=== PATIENT | female | born 1955 | race Caucasian/White ===

== ENCOUNTER 2024-11-24 12:07 | Emergency (ER) | payer MEDICARE, OTHER, SELFPAY ==
--- NOTE | ~2024-11-24 | CT_ITS ---
EXAMINATION: CT HEAD WITHOUT IV CONTRAST HISTORY: ams. TECHNIQUE: Unenhanced helical CT of the head was performed per standard departmental protocol. Coronal and sagittal reformats of the head were also evaluated. One or more of the following techniques was used for dose reduction: Automated exposure control, adjustment of the mA and/or kV according to patient size, use of iterative reconstruction technique. DLP: 793 mGy-cm COMPARISON: There are no prior studies available for comparison. FINDINGS: BRAIN: There is mild prominence of the ventricular system and cortical sulci, consistent with atrophy. Scattered periventricular and subcortical white matter hypodensities are noted which are nonspecific, but often seen in the setting of small vessel ischemic disease. There is no mass effect or midline shift. No intra- or extra-axial fluid collections are identified. SINUSES: The visualized paranasal sinuses are clear. The mastoid air cells and middle ear cavities are well pneumatized. ORBITS: The visualized orbits are unremarkable. BONES/SOFT TISSUES: The extracranial soft tissues are unremarkable. The calvarium is intact. No suspicious lytic or sclerotic lesions. CT/CT head/brain wo IV con IMPRESSION: No acute intracranial abnormality. Electronically signed by: Yayo Carlson MD 11/25/2024 07:56 AM EDT
[2024-11-24 12:28] VITALS: BP 146/66; PULSE 110; RESP 16; TEMP 36.5; O2SAT 97; BMI 29.5
--- NOTE | 2024-11-24 12:29 | ED.GENADULT ---
HPI - General Adult General Chief complaint: General Medical Stated complaint: high sugar and high bp- memory issues Time Seen by Provider: 11/24/24 16:02 Related Data Previous Rx's ?Medication ?Instructions ?Recorded metformin 500 mg tablet 1,500 mg (3 x 500 mg) PO BID 30 11/26/24 days #180 tabs metoprolol succinate 100 mg 100 mg PO DAILY #30 tabs 11/26/24 tablet,extended release 24 hr oxycodone 5 mg tablet 5 mg PO Q8H PRN pain (scale score 11/26/24 7-10) #5 tabs risperidone 1 mg tablet (Risperdal) 1 mg PO BID #20 tabs 11/26/24 Allergies Allergy/AdvReac Type Severity Reaction Status Date / Time No Known Allergies Allergy Verified 11/24/24 12:30 [facility] Past Medical History Medical History (Updated 11/27/24 @ 12:05 by Emani Ramirez [facility]) Diabetes mellitus Memory changes Physical Exam ED Vital Signs: Vital Signs - 24 hr 11/26/24 14:26 11/26/24 14:29 Temperature 98.1 F 98.1 F Pulse Rate 90 90 Respiratory Rate 18 18 Blood Pressure 143/62 H 143/62 H Pulse Oximetry 98 98 Oxygen Delivery Method Room Air Room Air BMI result Body Mass Index 29.5 Course Course Course Narrative: Rapid medical examination performed in triage by Katia Gamez PA-C. Patient is a 69 year old assigned female at presenting to the emergency department with elevated blood pressure and sugars? Detailed physical exam and review of systems are deferred to the real estate loan processor. EKG and labs ordered. Patient placed back in the waiting room pending room availability and results. Reevaluation(s) Reevaluation #1: Time: 06:05 Date: 11/25/24 Provider: Ofe Pritchard, DO Patient in physician observation for psychiatric evaluation.? No acute events reported overnight. No current complaints. VS stable.? Patient is pending psych consult, head CT read pending will call rads. Will continue to monitor. Reevaluation #2: Just receiving a call from [facility], the patient is enquiring about medication for anxiety and a headache. She received Ativan and Tylenol yesterday, repeating also adding ibuprofen..... She is also hyperglycemic, she has scheduled metformin that she did not receive yet, she does not take insulin, nursing is going to administer now Medications Administered Discontinued Medications Generic Name Dose Route Start Last Admin Trade Name Shelia PRMargaux Reason Stop Dose Admin Acetaminophen 975 mg 11/24/24 20:50 11/24/24 20:53 Acetaminophen 325 Mg Tablet PO 11/24/24 20:51 975 mg ONCE ONE Administration Acetaminophen 975 mg 11/25/24 10:31 11/25/24 12:19 Acetaminophen 325 Mg Tablet PO 11/25/24 10:32 Not Given ONCE ONE Acetaminophen 975 mg 11/25/24 12:39 11/25/24 12:42 Acetaminophen 325 Mg Tablet PO 11/25/24 12:40 325 mg ONCE ONE Administration Acetaminophen 975 mg 11/25/24 21:01 11/25/24 21:54 Acetaminophen 325 Mg Tablet PO 11/25/24 21:02 975 mg ONCE ONE Administration Diphenhydramine HCl 25 mg 11/24/24 19:52 11/24/24 20:49 Diphenhydramine Hcl 50 Mg/Ml Vial IM 11/24/24 19:53 Not Given ONCE ONE Haloperidol Lactate 5 mg 11/24/24 19:52 11/24/24 20:49 Haloperidol Lactate 5 Mg/Ml Vial IM 11/24/24 19:53 Not Given ONCE ONE Sodium Chloride 1,000 mls @ 999 mls/hr 11/24/24 16:30 11/24/24 17:50 Ns IV 11/24/24 17:30 Infused .Q1H1M COMFORT Infusion Sodium Chloride 1,000 mls @ 999 mls/hr 11/24/24 21:45 11/25/24 00:29 Ns IV 11/24/24 22:45 Infused .Q1H1M COMFORT Infusion Ibuprofen 600 mg 11/25/24 21:01 11/25/24 23:52 Ibuprofen 600 Mg Tablet PO 11/25/24 21:02 Not Given ONCE ONE Insulin Human Regular 5 unit 11/24/24 21:37 11/24/24 23:09 Insulin Regular, Human 100 Unit/Ml 10 Ml Vial SUBCUT 11/24/24 21:38 5 unit ONCE ONE Administration Lidocaine 1 patch 11/24/24 20:29 11/24/24 23:08 Lidocaine 4 % Patch Adh..Patch TRANSDERMA 11/24/24 20:30 1 patch ONCE ONE Administration Protocol Lorazepam 1 mg 11/24/24 20:03 11/24/24 20:09 Lorazepam 1 Mg Tablet PO 11/24/24 20:04 1 mg ONCE ONE Administration Lorazepam 1 mg 11/25/24 21:01 11/25/24 21:54 Lorazepam 1 Mg Tablet PO 11/25/24 21:02 1 mg ONCE ONE Administration Metformin HCl 1,000 mg 11/25/24 10:45 11/25/24 12:38 Metformin Hcl 1,000 Mg Tablet PO 1,000 mg BID COMFORT Administration Metformin HCl 1,000 mg 11/25/24 21:00 11/26/24 09:21 Metformin Hcl 1,000 Mg Tablet PO 1,000 mg BID COMFORT Administration Metoprolol Succinate 100 mg 11/25/24 10:45 11/26/24 09:22 Metoprolol Succinate Er 100 Mg Tab.Er.24h PO 100 mg DAILY COMFORT Administration Protocol Oxycodone HCl 5 mg 11/25/24 11:19 11/25/24 12:37 Oxycodone Hcl Immed Release 5 Mg Tablet PO 11/25/24 11:20 5 mg ONCE ONE Administration Oxycodone HCl 5 mg 11/26/24 08:38 11/26/24 09:21 Oxycodone Hcl Immed Release 5 Mg Tablet PO 11/26/24 08:39 5 mg ONCE ONE Administration Quetiapine Fumarate 25 mg 11/24/24 19:48 11/24/24 23:09 Quetiapine Fumarate 25 Mg Tablet PO 11/24/24 19:49 25 mg ONCE ONE Administration Risperidone 1 mg 11/25/24 14:10 11/26/24 09:22 Risperidone 1 Mg Tablet PO 1 mg BID COMFORT Administration Medical Decision Making Lab Data 11/24/24 12:41 11/24/24 12:41 Labs: Lab Results 11/24/24 11/24/24 11/24/24 Range/Units 12:41 15:53 16:48 WBC 7.6 (4.8-10.8) X10*3/uL RBC 4.06 L (4.20-5.50) X10*6/uL Hgb 13.5 (12.0-16.0) g/dl Hct 37.3 (37.0-47.0) % MCV 91.9 (80.0-98.0) fL MCH 33.3 H (27.0-33.0) pg MCHC 36.2 H (31.0-35.0) g/dl RDW 11.8 (11.0-16.0) % Plt Count 219 (160-400) X10*3/uL MPV 8.7 L (9.4-12.3) fL Immature Gran % (Auto) 0.5 H (0.0-0.4) % Neut % (Auto) 64.0 (45-73) % Lymph % (Auto) 28.9 (20-40) % Lake % (Auto) 5.9 (2-11) % Eos % (Auto) 0.4 (0-4) % Baso % (Auto) 0.3 (0-2) % Lymph # (Auto) 2.2 (1.2-4.9) X10*3/uL Lake # (Auto) 0.5 (0.1-1.2) X10*3/uL Eos # (Auto) 0.0 (0.0-0.4) X10*3/uL Baso # (Auto) 0.0 (0.0-0.2) X10*3/uL Abs Immat Gran (auto) 0.04 H (0.00-0.03) X10*3/uL Absolute Neuts (auto) 4.9 (2.0-8.3) x10*3/uL Absolute Nucleated RBC 0.000 (0.0-0.012) X10*3/uL Nucleated RBC % (auto) 0.0 (0.0-0.2) /100WBC Sodium 138 (135-145) mmol/L Potassium 4.2 (3.3-5.1) mmol/L Chloride 104 (96-108) mmol/L Carbon Dioxide 24 (22-29) mmol/L Anion Gap 14 (12-20) BUN 12 (9-16) mg/dL Creatinine 0.64 (0.5-1.4) mg/dL Estim Creat Clear Calc 96.3 Estimated GFR > 60 POC Glucose 286 H (60-115) mg/dL Random Glucose 407 H* (60-115) mg/dL Lactic Acid 1.2 (0.5-2.0) mmol/L Calcium 10.1 (8.4-10.2) mg/dL Magnesium 1.6 (1.6-2.6) mg/dL Total Bilirubin 0.4 (0.0-1.0) mg/dL AST 16 (5-31) U/L ALT 13 (0-31) U/L Alkaline Phosphatase 56 (39-117) U/L Total Protein 7.3 (6.5-8.0) g/dL Albumin 4.5 (3.5-5.0) g/dL Vitamin B12 933 H (200-900) pg/mL TSH 0.45 (0.32-4.0) uIU/mL Urine Color Yellow Urine Appearance Clear Urine pH 6.0 (5.0-9.0) Ur Specific [place] >= 1.030 H (1.005-1.025) Urine Protein 30 (1+) H (Neg-Trace) mg/dL Urine Glucose (UA) >=1000 H (Negative) mg/dL Urine Ketones 80 (Negative) mg/dL Urine Blood Negative (Negative) Urine Nitrite Negative (Negative) Ur Leukocyte Esterase Negative (Negative) Urine RBC 0-2 (0-2) /HPF Urine WBC 0-5 (0-5) /HPF Ur Squamous Epith Cells 0-2 (0-2) /HPF Urine Bacteria None Seen (None Seen) Hyaline Casts 0-2 (0-2) /LPF COVID-19 ([facility]) Negative (Negative) COVID-19 Clin Com See Note 11/24/24 11/24/24 11/25/24 Range/Units 17:43 20:53 07:02 WBC (4.8-10.8) X10*3/uL RBC (4.20-5.50) X10*6/uL Hgb (12.0-16.0) g/dl Hct (37.0-47.0) % MCV (80.0-98.0) fL MCH (27.0-33.0) pg MCHC (31.0-35.0) g/dl RDW (11.0-16.0) % Plt Count (160-400) X10*3/uL MPV (9.4-12.3) fL Immature Gran % (Auto) (0.0-0.4) % Neut % (Auto) (45-73) % Lymph % (Auto) (20-40) % Lake % (Auto) (2-11) % Eos % (Auto) (0-4) % Baso % (Auto) (0-2) % Lymph # (Auto) (1.2-4.9) X10*3/uL Lake # (Auto) (0.1-1.2) X10*3/uL Eos # (Auto) (0.0-0.4) X10*3/uL Baso # (Auto) (0.0-0.2) X10*3/uL Abs Immat Gran (auto) (0.00-0.03) X10*3/uL Absolute Neuts (auto) (2.0-8.3) x10*3/uL Absolute Nucleated RBC (0.0-0.012) X10*3/uL Nucleated RBC % (auto) (0.0-0.2) /100WBC Sodium (135-145) mmol/L Potassium (3.3-5.1) mmol/L Chloride (96-108) mmol/L Carbon Dioxide (22-29) mmol/L Anion Gap (12-20) BUN (9-16) mg/dL Creatinine (0.5-1.4) mg/dL Estim Creat Clear Calc Estimated GFR POC Glucose 245 H 353 H* 217 H (60-115) mg/dL Random Glucose (60-115) mg/dL Lactic Acid (0.5-2.0) mmol/L Calcium (8.4-10.2) mg/dL Magnesium (1.6-2.6) mg/dL Total Bilirubin (0.0-1.0) mg/dL AST (5-31) U/L ALT (0-31) U/L Alkaline Phosphatase (39-117) U/L Total Protein (6.5-8.0) g/dL Albumin (3.5-5.0) g/dL Vitamin B12 (200-900) pg/mL TSH (0.32-4.0) uIU/mL Urine Color Urine Appearance Urine pH (5.0-9.0) Ur Specific [place] (1.005-1.025) Urine Protein (Neg-Trace) mg/dL Urine Glucose (UA) (Negative) mg/dL Urine Ketones (Negative) mg/dL Urine Blood (Negative) Urine Nitrite (Negative) Ur Leukocyte Esterase (Negative) Urine RBC (0-2) /HPF Urine WBC (0-5) /HPF Ur Squamous Epith Cells (0-2) /HPF Urine Bacteria (None Seen) Hyaline Casts (0-2) /LPF COVID-19 ([facility]) (Negative) COVID-19 Clin Com 11/25/24 11/25/24 11/26/24 Range/Units 16:35 21:11 08:23 WBC (4.8-10.8) X10*3/uL RBC (4.20-5.50) X10*6/uL Hgb (12.0-16.0) g/dl Hct (37.0-47.0) % MCV (80.0-98.0) fL MCH (27.0-33.0) pg MCHC (31.0-35.0) g/dl RDW (11.0-16.0) % Plt Count (160-400) X10*3/uL MPV (9.4-12.3) fL Immature Gran % (Auto) (0.0-0.4) % Neut % (Auto) (45-73) % Lymph % (Auto) (20-40) % Lake % (Auto) (2-11) % Eos % (Auto) (0-4) % Baso % (Auto) (0-2) % Lymph # (Auto) (1.2-4.9) X10*3/uL [place] # (Auto) (0.1-1.2) X10*3/uL Eos # (Auto) (0.0-0.4) X10*3/uL Baso # (Auto) (0.0-0.2) X10*3/uL Abs Immat Gran (auto) (0.00-0.03) X10*3/uL Absolute Neuts (auto) (2.0-8.3) x10*3/uL Absolute Nucleated RBC (0.0-0.012) X10*3/uL Nucleated RBC % (auto) (0.0-0.2) /100WBC Sodium (135-145) mmol/L Potassium (3.3-5.1) mmol/L Chloride (96-108) mmol/L Carbon Dioxide (22-29) mmol/L Anion Gap (12-20) BUN (9-16) mg/dL Creatinine (0.5-1.4) mg/dL Estim Creat Clear Calc Estimated GFR POC Glucose 275 H 369 H* 273 H (60-115) mg/dL Random Glucose (60-115) mg/dL Lactic Acid (0.5-2.0) mmol/L Calcium (8.4-10.2) mg/dL Magnesium (1.6-2.6) mg/dL Total Bilirubin (0.0-1.0) mg/dL AST (5-31) U/L ALT (0-31) U/L Alkaline Phosphatase (39-117) U/L Total Protein (6.5-8.0) g/dL Albumin (3.5-5.0) g/dL Vitamin B12 (200-900) pg/mL TSH (0.32-4.0) uIU/mL Urine Color Urine Appearance Urine pH (5.0-9.0) Ur Specific [place] (1.005-1.025) Urine Protein (Neg-Trace) mg/dL Urine Glucose (UA) (Negative) mg/dL Urine Ketones (Negative) mg/dL Urine Blood (Negative) Urine Nitrite (Negative) Ur Leukocyte Esterase (Negative) Urine RBC (0-2) /HPF Urine WBC (0-5) /HPF Ur Squamous Epith Cells (0-2) /HPF Urine Bacteria (None Seen) Hyaline Casts (0-2) /LPF COVID-19 ([facility]) (Negative) COVID-19 Clin Com 11/26/24 Range/Units 12:20 WBC (4.8-10.8) X10*3/uL RBC (4.20-5.50) X10*6/uL Hgb (12.0-16.0) g/dl Hct (37.0-47.0) % MCV (80.0-98.0) fL MCH (27.0-33.0) pg MCHC (31.0-35.0) g/dl RDW (11.0-16.0) % Plt Count (160-400) X10*3/uL MPV (9.4-12.3) fL Immature Gran % (Auto) (0.0-0.4) % Neut % (Auto) (45-73) % Lymph % (Auto) (20-40) % Lake % (Auto) (2-11) % Eos % (Auto) (0-4) % Baso % (Auto) (0-2) % Lymph # (Auto) (1.2-4.9) X10*3/uL [place] # (Auto) (0.1-1.2) X10*3/uL Eos # (Auto) (0.0-0.4) X10*3/uL Baso # (Auto) (0.0-0.2) X10*3/uL Abs Immat Gran (auto) (0.00-0.03) X10*3/uL Absolute Neuts (auto) (2.0-8.3) x10*3/uL Absolute Nucleated RBC (0.0-0.012) X10*3/uL Nucleated RBC % (auto) (0.0-0.2) /100WBC Sodium (135-145) mmol/L Potassium (3.3-5.1) mmol/L Chloride (96-108) mmol/L Carbon Dioxide (22-29) mmol/L Anion Gap (12-20) BUN (9-16) mg/dL Creatinine (0.5-1.4) mg/dL Estim Creat Clear Calc Estimated GFR POC Glucose 325 H (60-115) mg/dL Random Glucose (60-115) mg/dL Lactic Acid (0.5-2.0) mmol/L Calcium (8.4-10.2) mg/dL Magnesium (1.6-2.6) mg/dL Total Bilirubin (0.0-1.0) mg/dL AST (5-31) U/L ALT (0-31) U/L Alkaline Phosphatase (39-117) U/L Total Protein (6.5-8.0) g/dL Albumin (3.5-5.0) g/dL Vitamin B12 (200-900) pg/mL TSH (0.32-4.0) uIU/mL Urine Color Urine Appearance Urine pH (5.0-9.0) Ur Specific [place] (1.005-1.025) Urine Protein (Neg-Trace) mg/dL Urine Glucose (UA) (Negative) mg/dL Urine Ketones (Negative) mg/dL Urine Blood (Negative) Urine Nitrite (Negative) Ur Leukocyte Esterase (Negative) Urine RBC (0-2) /HPF Urine WBC (0-5) /HPF Ur Squamous Epith Cells (0-2) /HPF Urine Bacteria (None Seen) Hyaline Casts (0-2) /LPF COVID-19 ([facility]) (Negative) COVID-19 Clin Com Discharge Plan Discharge Clinical Impression: Dementia, Left shoulder pain Patient Disposition: Home, Self-Care Instructions: Dementia (ED), Shoulder Pain (ED) Additional Instructions: You were evaluated by our psych team with recommendation to start risperidone. This has been sent to your pharmacy. Take this once daily. You need to follow up with your outpatient providers including PCP and neurologist. Take motrin/ tylenol for your shoulder pain. I am sending oxycodone, a controlled pain medication, to your pharmacy for you to take for breakthrough pain control. Please use this with caution as opioid pain medications have addictive properties. I have also provided you with Narcan as accidental overdoses on oxycodone can occur. Opioid pain medications can often cause constipation. I recommend taking this with an over the counter laxative and/or stool softener to help move your bowels. Case management has met with you and your niece. It has been decided that you will be discharged home with increased VNA services, set up by case management. Return with any new or worsening symptoms. In the case of an emergency call 911. Of note, your blood sugar was noted to be quite elevated even with your metformin. I am increasing her metformin dose. You need to follow up with your outpatient provider for further dosing and follow up. Prescriptions: New risperidone [Risperdal] 1 mg tablet 1 mg PO BID Qty: 20 0RF oxycodone 5 mg tablet 5 mg PO Q8H PRN (Reason: pain (scale score 7-10)) Qty: 5 0RF Rx Instructions: Partial Fill upon patient request. metformin 500 mg tablet 1,500 mg PO BID 30 Days Qty: 180 0RF metoprolol succinate 100 mg tablet extended release 24 hr 100 mg PO DAILY Qty: 30 0RF Referrals: [facility] [Provider Group] [facility] Neuro/[facility] [Provider Group] [facility] [Outside] Referral Note: Will call to arrange visits. [facility] [Outside] Referral Note: Will call to assess if patient qualifies for any services at home. Reena August NP [Primary Care Provider, Family Practice] Interventions: ED Discharge Assessment Last Done: 11/26/24 14:26 Discharge Date/Time: 11/26/24 15:05 Print Language: [place]
--- NOTE | 2024-11-24 12:30 | ECG_ITS ---
Test Reason : WEAKNESS Blood Pressure : */* mmHG Vent. Rate : 110 BPM Atrial Rate : 110 BPM P-R Int : 146 ms QRS Dur : 76 ms QT Int : 332 ms P-R-T Axes : 47 27 26 degrees QTcB Int : 449 ms Sinus tachycardia Otherwise normal ECG No previous ECGs available Referred By: Katia Gamez Electronically Signed By: RHINA SNYDER MD
[2024-11-24 12:46] LABS: MANUAL DIFF FLAG NO
[2024-11-24 12:53] LABS: Hematocrit 37.3 % (37.0-47.0); Hemoglobin 13.5 g/dl (12.0-16.0); Imm Gran Abs Auto 0.04 X10*3/uL (0.00-0.03); Imm Gran Pct Auto 0.5 % (0.0-0.4); Lymphocytes Absolute Auto 2.2 X10*3/uL (1.2-4.9); Mean Corpuscular HGB Conc 36.2 g/dl (31.0-35.0); Mean Corpuscular Hemoglobin 33.3 pg (27.0-33.0); Mean Corpuscular Volume 91.9 fL (80.0-98.0); NRBC Abs Auto 0.000 X10*3/uL (0.0-0.012); NRBC Pct Auto 0.0 /100WBC (0.0-0.2); Platelet Count 219 X10*3/uL (160-400); Red Blood Count 4.06 X10*6/uL (4.20-5.50); White Blood Count 7.6 X10*3/uL (4.8-10.8)
[2024-11-24 13:02] LABS: Alanine Aminotransferase 13 U/L (0-31); Albumin Level 4.5 g/dL (3.5-5.0); Alkaline Phosphatase 56 U/L (39-117); Anion Gap 14 (12-20); Aspartate Amino Transferase 16 U/L (5-31); Blood Urea Nitrogen 12 mg/dL (9-16); Calcium 10.1 mg/dL (8.4-10.2); Carbon Dioxide 24 mmol/L (22-29); Chloride 104 mmol/L (96-108); Creatinine Clr Calc Pharmacy 96.3; Estimated Glomerular Filt Rate > 60; Magnesium 1.6 mg/dL (1.6-2.6); Potassium 4.2 mmol/L (3.3-5.1); Sodium 138 mmol/L (135-145); Total Protein 7.3 g/dL (6.5-8.0)
[2024-11-24 15:57] LABS: Glucose, Whole Blood 286 mg/dL (60-115)
[2024-11-24 16:09] VITALS: BP 117/58; PULSE 92; RESP 17; TEMP 36.2; O2SAT 100
--- NOTE | 2024-11-24 16:20 | ED.GENADULT ---
HPI - General Adult General Chief complaint: General Medical Stated complaint: high sugar and high bp- memory issues Time Seen by Provider: 11/24/24 16:02 History of Present Illness HPI narrative: Patient is a 69-year-old female presents today with having sugar reading high. Patient undergone some neuropsych testing. Was found to be very forgetful. Mental status per knees has declined significantly in the last 6 months. Patient lives at home. There has been a lot of pills that are missing from her metformin she has a history diabetes. There is no fever no chills. There is no cough no congestion. There is no chest pain is no shortness of breath. Patient remembers that she went to school at [employer] she received an educational doctor it. 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 She is from [place]. Unable to recall the details of what is going on currently. Unable to recall if she took her medication. Unable to recall why her pills are missing. Patient denies any systemic complaints. Was initially noted to have a sugar over 400. Related Data Home Medications ?Medication ?Instructions ?Recorded ?Confirmed metformin 500 mg tablet 1,000 mg PO BID 11/24/24 11/24/24 metoprolol succinate 100 mg 100 mg PO DAILY 11/24/24 11/25/24 tablet,extended release 24 hr Previous Rx's ?Medication ?Instructions ?Recorded oxycodone 5 mg tablet 5 mg PO Q8H PRN pain (scale score 11/26/24 7-10) #5 tabs risperidone 1 mg tablet (Risperdal) 1 mg PO BID #20 tabs 11/26/24 Allergies Allergy/AdvReac Type Severity Reaction Status Date / Time No Known Allergies Allergy Verified 11/24/24 12:30 Review of Systems Review of Systems: Positive confusion Yes all other systems are reviewed and are negative [facility]LY [facility] Past Medical History Attestation statement: The following information was validated with the patient. Social History Social History Smoked in Last 30 Days: No Use of substances other than those prescribed or required for medical reasons: No Advance Directives: Yes Advance Directives Information Provided: Yes Advance Directives on File: No Do you have a plan to hurt others: No Plan Physical Exam ED Exam Exam: Appearance: Alert. Oriented X3. No acute distress. Eyes: Pupils equal, round and reactive to light. ENT: Pharynx normal. Neck: Normal inspection. Neck supple. No lymph nodes noted. No crepitus CVS: Normal heart rate and rhythm. Pulses normal. Normal S1 and S2 Respiratory: No respiratory distress. Breath sounds normal. No Wheezing. No rales Abdomen: Soft and nontender. No rigidity. No distention. good BS x4 Skin: Skin warm and dry. Normal skin color. Normal skin turgor. Extremities: No lower extremity edema. Neurovascular intact to all extremities. No Lacerations. No Rash Neuro: Oriented X 3. No motor deficit. No sensory deficit. Moving all extermities. No slurred speech Vital Signs: Vital Signs - 24 hr 11/25/24 12:38 11/25/24 14:10 11/25/24 16:00 Temperature 96.9 F 97.0 F Pulse Rate 73 88 80 Respiratory Rate 18 20 Blood Pressure 169/69 H 129/64 137/64 Pulse Oximetry 97 99 Oxygen Delivery Method Room Air Room Air 11/25/24 19:53 11/25/24 22:00 11/26/24 06:00 Temperature 97.4 F 97.0 F 97.2 F Pulse Rate 91 82 97 Respiratory Rate 20 18 18 Blood Pressure 151/76 H 125/66 158/78 H Pulse Oximetry 95 98 98 Oxygen Delivery Method Room Air Room Air Room Air 11/26/24 09:22 11/26/24 09:32 Temperature 98.5 F Pulse Rate 103 H 101 H Respiratory Rate 16 Blood Pressure 100/65 96/54 L Pulse Oximetry 100 Oxygen Delivery Method Room Air BMI result Body Mass Index 29.5 Course Course Course Narrative: Time: 18:03 Date: 11/25/24 Provider: CODEY Reynoso Patient in physician observation for case management needs. No acute events reported overnight.? No current issues or complaints. VS stable. Patient is pending CM eval. Will continue to monitor. Time: 08:41 Date: 11/26/24 Provider: CODEY Reynoso Patient in physician observation for case management needs. No acute events reported overnight.?patient endorsing acute on chronic atraumatic left shoulder pain. she has full ROM to L shoulder, no deformity or overlying skin changes. she follows with ortho for this outpatient. had a cortisone injection a few weeks ago without much improvement. tells me she missed her follow up appointment. she states she typically just takes tylenol for this at home [facility]. one time dose of oxy ordered for pain control. given continued pain w/ no change, I do not feel imaging is warranted at this time. I have ordered a one time dose of oxycodone. psych has evaluated patient - recommending risperidone 1 mg BID with continued outpatient treatment w/ neurology and PCP. see psych note for further info. she does not meet criteria for admission at this time. Per CM, plan is to discharge patient home w/ VNA services. Her niece Elizabeth will be transporting her home around 1400 today. Will continue to monitor. Time: 12:23 Date: 11/26/24 Provider: CODEY Reynoso Physician observation ended at 1223. see above note. Medications Administered Generic Name Dose Route Start Last Admin Trade Name Freq PRN Reason Stop Dose Admin Metformin HCl 1,000 mg 11/25/24 21:00 11/26/24 09:21 Metformin Hcl 1,000 Mg Tablet PO 1,000 mg BID COMFORT Administration Metoprolol Succinate 100 mg 11/25/24 10:45 11/26/24 09:22 Metoprolol Succinate Er 100 Mg Tab.Er.24h PO 100 mg DAILY COMFORT Administration Protocol Risperidone 1 mg 11/25/24 14:10 11/26/24 09:22 Risperidone 1 Mg Tablet PO 1 mg BID COMFORT Administration Discontinued Medications Generic Name Dose Route Start Last Admin Trade Name Freq PRN Reason Stop Dose Admin Acetaminophen 975 mg 11/24/24 20:50 11/24/24 20:53 Acetaminophen 325 Mg Tablet PO 11/24/24 20:51 975 mg ONCE ONE Administration Acetaminophen 975 mg 11/25/24 10:31 11/25/24 12:19 Acetaminophen 325 Mg Tablet PO 11/25/24 10:32 Not Given ONCE ONE Acetaminophen 975 mg 11/25/24 12:39 11/25/24 12:42 Acetaminophen 325 Mg Tablet PO 11/25/24 12:40 325 mg ONCE ONE Administration Acetaminophen 975 mg 11/25/24 21:01 11/25/24 21:54 Acetaminophen 325 Mg Tablet PO 11/25/24 21:02 975 mg ONCE ONE Administration Diphenhydramine HCl 25 mg 11/24/24 19:52 11/24/24 20:49 Diphenhydramine Hcl 50 Mg/Ml Vial IM 11/24/24 19:53 Not Given ONCE ONE Haloperidol Lactate 5 mg 11/24/24 19:52 11/24/24 20:49 Haloperidol Lactate 5 Mg/Ml Vial IM 11/24/24 19:53 Not Given ONCE ONE Sodium Chloride 1,000 mls @ 999 mls/hr 11/24/24 16:30 11/24/24 17:50 Ns IV 11/24/24 17:30 Infused .Q1H1M COMFORT Infusion Sodium Chloride 1,000 mls @ 999 mls/hr 11/24/24 21:45 11/25/24 00:29 Ns IV 11/24/24 22:45 Infused .Q1H1M COMFORT Infusion Ibuprofen 600 mg 11/25/24 21:01 11/25/24 23:52 Ibuprofen 600 Mg Tablet PO 11/25/24 21:02 Not Given ONCE ONE Insulin Human Regular 5 unit 11/24/24 21:37 11/24/24 23:09 Insulin Regular, Human 100 Unit/Ml 10 Ml Vial SUBCUT 11/24/24 21:38 5 unit ONCE ONE Administration Lidocaine 1 patch 11/24/24 20:29 11/24/24 23:08 Lidocaine 4 % Patch Adh..Patch TRANSDERMA 11/24/24 20:30 1 patch ONCE ONE Administration Protocol Lorazepam 1 mg 11/24/24 20:03 11/24/24 20:09 Lorazepam 1 Mg Tablet PO 11/24/24 20:04 1 mg ONCE ONE Administration Lorazepam 1 mg 11/25/24 21:01 11/25/24 21:54 Lorazepam 1 Mg Tablet PO 11/25/24 21:02 1 mg ONCE ONE Administration Metformin HCl 1,000 mg 11/25/24 10:45 11/25/24 12:38 Metformin Hcl 1,000 Mg Tablet PO 1,000 mg BID COMFORT Administration Oxycodone HCl 5 mg 11/25/24 11:19 11/25/24 12:37 Oxycodone Hcl Immed Release 5 Mg Tablet PO 11/25/24 11:20 5 mg ONCE ONE Administration Oxycodone HCl 5 mg 11/26/24 08:38 11/26/24 09:21 Oxycodone Hcl Immed Release 5 Mg Tablet PO 11/26/24 08:39 5 mg ONCE ONE Administration Quetiapine Fumarate 25 mg 11/24/24 19:48 11/24/24 23:09 Quetiapine Fumarate 25 Mg Tablet PO 11/24/24 19:49 25 mg ONCE ONE Administration Medical Decision Making Medical Decision Making MDM Narrative: Well-appearing no acute distress. Has very poor short-term memory has good long-term memory had neuropsych testing done had increasing confusion poor short-term memory. Will get CT scan of the head to rule out the possibility of bleed. Will also get electrolytes. TSH and B12. Care team to evaluate for possible [facility] psych. Differential Diagnosis Differential Diagnoses: The differential diagnosis associated with the presentation includes Intracranial bleed, hypothyroid, vitamin B12 deficiency, hyperglycemia, hypoglycemia, dementia, infection Admission/Observation Consideration of admission/observation: Escalation of care including admission/observation considered Consult Healthcare Provider Management of the patient was discussed with: Behavioral Health Provider Lab Data 11/24/24 12:41 11/24/24 12:41 Labs: Lab Results 11/24/24 11/24/24 11/24/24 Range/Units 12:41 15:53 16:48 WBC 7.6 (4.8-10.8) X10*3/uL RBC 4.06 L (4.20-5.50) X10*6/uL Hgb 13.5 (12.0-16.0) g/dl Hct 37.3 (37.0-47.0) % MCV 91.9 (80.0-98.0) fL MCH 33.3 H (27.0-33.0) pg MCHC 36.2 H (31.0-35.0) g/dl RDW 11.8 (11.0-16.0) % Plt Count 219 (160-400) X10*3/uL MPV 8.7 L (9.4-12.3) fL Immature Gran % (Auto) 0.5 H (0.0-0.4) % Neut % (Auto) 64.0 (45-73) % Lymph % (Auto) 28.9 (20-40) % Faulk % (Auto) 5.9 (2-11) % Eos % (Auto) 0.4 (0-4) % Baso % (Auto) 0.3 (0-2) % Lymph # (Auto) 2.2 (1.2-4.9) X10*3/uL Faulk # (Auto) 0.5 (0.1-1.2) X10*3/uL Eos # (Auto) 0.0 (0.0-0.4) X10*3/uL Baso # (Auto) 0.0 (0.0-0.2) X10*3/uL Abs Immat Gran (auto) 0.04 H (0.00-0.03) X10*3/uL Absolute Neuts (auto) 4.9 (2.0-8.3) x10*3/uL Absolute Nucleated RBC 0.000 (0.0-0.012) X10*3/uL Nucleated RBC % (auto) 0.0 (0.0-0.2) /100WBC Sodium 138 (135-145) mmol/L Potassium 4.2 (3.3-5.1) mmol/L Chloride 104 (96-108) mmol/L Carbon Dioxide 24 (22-29) mmol/L Anion Gap 14 (12-20) BUN 12 (9-16) mg/dL Creatinine 0.64 (0.5-1.4) mg/dL Estim Creat Clear Calc 96.3 Estimated GFR > 60 POC Glucose 286 H (60-115) mg/dL Random Glucose 407 H* (60-115) mg/dL Lactic Acid 1.2 (0.5-2.0) mmol/L Calcium 10.1 (8.4-10.2) mg/dL Magnesium 1.6 (1.6-2.6) mg/dL Total Bilirubin 0.4 (0.0-1.0) mg/dL AST 16 (5-31) U/L ALT 13 (0-31) U/L Alkaline Phosphatase 56 (39-117) U/L Total Protein 7.3 (6.5-8.0) g/dL Albumin 4.5 (3.5-5.0) g/dL Vitamin B12 933 H (200-900) pg/mL TSH 0.45 (0.32-4.0) uIU/mL Urine Color Yellow Urine Appearance Clear Urine pH 6.0 (5.0-9.0) Ur Specific [place] >= 1.030 H (1.005-1.025) Urine Protein 30 (1+) H (Neg-Trace) mg/dL Urine Glucose (UA) >=1000 H (Negative) mg/dL Urine Ketones 80 (Negative) mg/dL Urine Blood Negative (Negative) Urine Nitrite Negative (Negative) Ur Leukocyte Esterase Negative (Negative) Urine RBC 0-2 (0-2) /HPF Urine WBC 0-5 (0-5) /HPF Ur Squamous Epith Cells 0-2 (0-2) /HPF Urine Bacteria None Seen (None Seen) Hyaline Casts 0-2 (0-2) /LPF COVID-19 (KIRTI) Negative (Negative) COVID-19 Clin Com See Note 11/24/24 11/24/24 11/25/24 Range/Units 17:43 20:53 07:02 WBC (4.8-10.8) X10*3/uL RBC (4.20-5.50) X10*6/uL Hgb (12.0-16.0) g/dl Hct (37.0-47.0) % MCV (80.0-98.0) fL MCH (27.0-33.0) pg MCHC (31.0-35.0) g/dl RDW (11.0-16.0) % Plt Count (160-400) X10*3/uL MPV (9.4-12.3) fL Immature Gran % (Auto) (0.0-0.4) % Neut % (Auto) (45-73) % Lymph % (Auto) (20-40) % Faulk % (Auto) (2-11) % Eos % (Auto) (0-4) % Baso % (Auto) (0-2) % Lymph # (Auto) (1.2-4.9) X10*3/uL Faulk # (Auto) (0.1-1.2) X10*3/uL Eos # (Auto) (0.0-0.4) X10*3/uL Baso # (Auto) (0.0-0.2) X10*3/uL Abs Immat Gran (auto) (0.00-0.03) X10*3/uL Absolute Neuts (auto) (2.0-8.3) x10*3/uL Absolute Nucleated RBC (0.0-0.012) X10*3/uL Nucleated RBC % (auto) (0.0-0.2) /100WBC Sodium (135-145) mmol/L Potassium (3.3-5.1) mmol/L Chloride (96-108) mmol/L Carbon Dioxide (22-29) mmol/L Anion Gap (12-20) BUN (9-16) mg/dL Creatinine (0.5-1.4) mg/dL Estim Creat Clear Calc Estimated GFR POC Glucose 245 H 353 H* 217 H (60-115) mg/dL Random Glucose (60-115) mg/dL Lactic Acid (0.5-2.0) mmol/L Calcium (8.4-10.2) mg/dL Magnesium (1.6-2.6) mg/dL Total Bilirubin (0.0-1.0) mg/dL AST (5-31) U/L ALT (0-31) U/L Alkaline Phosphatase (39-117) U/L Total Protein (6.5-8.0) g/dL Albumin (3.5-5.0) g/dL Vitamin B12 (200-900) pg/mL TSH (0.32-4.0) uIU/mL Urine Color Urine Appearance Urine pH (5.0-9.0) Ur Specific [place] (1.005-1.025) Urine Protein (Neg-Trace) mg/dL Urine Glucose (UA) (Negative) mg/dL Urine Ketones (Negative) mg/dL Urine Blood (Negative) Urine Nitrite (Negative) Ur Leukocyte Esterase (Negative) Urine RBC (0-2) /HPF Urine WBC (0-5) /HPF Ur Squamous Epith Cells (0-2) /HPF Urine Bacteria (None Seen) Hyaline Casts (0-2) /LPF COVID-19 (KIRTI) (Negative) COVID-19 Clin Com 11/25/24 11/25/24 11/26/24 Range/Units 16:35 21:11 08:23 WBC (4.8-10.8) X10*3/uL RBC (4.20-5.50) X10*6/uL Hgb (12.0-16.0) g/dl Hct (37.0-47.0) % MCV (80.0-98.0) fL MCH (27.0-33.0) pg MCHC (31.0-35.0) g/dl RDW (11.0-16.0) % Plt Count (160-400) X10*3/uL MPV (9.4-12.3) fL Immature Gran % (Auto) (0.0-0.4) % Neut % (Auto) (45-73) % Lymph % (Auto) (20-40) % Faulk % (Auto) (2-11) % Eos % (Auto) (0-4) % Baso % (Auto) (0-2) % Lymph # (Auto) (1.2-4.9) X10*3/uL Faulk # (Auto) (0.1-1.2) X10*3/uL Eos # (Auto) (0.0-0.4) X10*3/uL Baso # (Auto) (0.0-0.2) X10*3/uL Abs Immat Gran (auto) (0.00-0.03) X10*3/uL Absolute Neuts (auto) (2.0-8.3) x10*3/uL Absolute Nucleated RBC (0.0-0.012) X10*3/uL Nucleated RBC % (auto) (0.0-0.2) /100WBC Sodium (135-145) mmol/L Potassium (3.3-5.1) mmol/L Chloride (96-108) mmol/L Carbon Dioxide (22-29) mmol/L Anion Gap (12-20) BUN (9-16) mg/dL Creatinine (0.5-1.4) mg/dL Estim Creat Clear Calc Estimated GFR POC Glucose 275 H 369 H* 273 H (60-115) mg/dL Random Glucose (60-115) mg/dL Lactic Acid (0.5-2.0) mmol/L Calcium (8.4-10.2) mg/dL Magnesium (1.6-2.6) mg/dL Total Bilirubin (0.0-1.0) mg/dL AST (5-31) U/L ALT (0-31) U/L Alkaline Phosphatase (39-117) U/L Total Protein (6.5-8.0) g/dL Albumin (3.5-5.0) g/dL Vitamin B12 (200-900) pg/mL TSH (0.32-4.0) uIU/mL Urine Color Urine Appearance Urine pH (5.0-9.0) Ur Specific [place] (1.005-1.025) Urine Protein (Neg-Trace) mg/dL Urine Glucose (UA) (Negative) mg/dL Urine Ketones (Negative) mg/dL Urine Blood (Negative) Urine Nitrite (Negative) Ur Leukocyte Esterase (Negative) Urine RBC (0-2) /HPF Urine WBC (0-5) /HPF Ur Squamous Epith Cells (0-2) /HPF Urine Bacteria (None Seen) Hyaline Casts (0-2) /LPF COVID-19 ([facility]IRTI) (Negative) COVID-19 Clin Com Discharge Plan Discharge Clinical Impression: Dementia, Left shoulder pain Patient Disposition: Home, Self-Care Instructions: Dementia (ED) Additional Instructions: You were evaluated by our psych team with recommendation to start risperidone. This has been sent to your pharmacy. Take this once daily. You need to follow up with your outpatient providers including PCP and neurologist. Take motrin/ tylenol for your shoulder pain. I am sending oxycodone, a controlled pain medication, to your pharmacy for you to take for breakthrough pain control. Please use this with caution as opioid pain medications have addictive properties. I have also provided you with Narcan as accidental overdoses on oxycodone can occur. Opioid pain medications can often cause constipation. I recommend taking this with an over the counter laxative and/or stool softener to help move your bowels. Case management has met with you and your niece. It has been decided that you will be discharged home with increased VNA services, set up by case management. Return with any new or worsening symptoms. In the case of an emergency call 911. Prescriptions: New risperidone [Risperdal] 1 mg tablet 1 mg PO BID Qty: 20 0RF oxycodone 5 mg tablet 5 mg PO Q8H PRN (Reason: pain (scale score 7-10)) Qty: 5 0RF Rx Instructions: Partial Fill upon patient request. No Action metformin 500 mg tablet 1,000 mg PO BID metoprolol succinate 100 mg tablet extended release 24 hr 100 mg PO DAILY Referrals: [facility] [Provider Group] [facility] [Provider Group] [facility] [Outside] Referral Note: Will call to arrange visits. [facility] [Outside] Referral Note: Will call to assess if patient qualifies for any services at home. Reena August NP [Primary Care Provider, Family Practice] Print Language: [place]
[2024-11-24 17:00] LABS: Appearance Urine Clear; Glucose Urine UA >=1000 mg/dL (Negative); PH 6.0 (5.0-9.0); Specific Gravity - Urine >= 1.030 (1.005-1.025); UMIC TRIGGER UACC YES
[2024-11-24 17:11] LABS: Thyroid Stimulating Hormone 0.45 uIU/mL (0.32-4.0)
[2024-11-24 17:17] LABS: COVID-19 Test Negative (Negative); IDNOW Serial# 55D5AD1C
--- NOTE | 2024-11-24 17:17 | PC.NURSE ---
pt alert and oriented to self. otherwise pleasantly confused. vss and up to date. pt presents to the ED w/ niece (Sherri) after being advised to have workup completed d/t blood glucose reading high while at PCP office. per patient's niece, pt is currently in the midst of neurology consultations d/t increased confusion. per patient's niece, pt lives at home alone and often forgets to take medication or take too much medication. POC in ED displays 268mg/dL. provider notified/aware of results. ambulatory to restroom w/ personal cane - strong/steady gait. urine obtained/sent to lab. 20gIV placed in the right AC - labs obtained/sent to lab. IVF infusing per provider order. will reassess POC s/p IVF bolus. pt changed over - niece took belongings home aside from patient remaining w/ glasses, cell phone and cane. pt otherwise evaluated by care team. pending psych/PT/CM consult. pt otherwise in no apparent distress. no sob/wob noted. respirations even/unlabored. plan of care ongoing.
[2024-11-24 17:42] LABS: Vitamin B12 933 pg/mL (200-900)
[2024-11-24 17:49] LABS: Glucose, Whole Blood 245 mg/dL (60-115)
[2024-11-24 20:59] LABS: Glucose, Whole Blood 353 mg/dL (60-115)
[2024-11-24 22:09] VITALS: BP 132/59; PULSE 90; RESP 16; TEMP 36.8; O2SAT 97
[2024-11-24] MEDS: Lidocaine 4 % Patch ADH..PATCH 1 PATCH TRANSDERMA (23:08)
[2024-11-25 06:28] VITALS: BP 169/69; PULSE 73; RESP 16; TEMP 36.3; O2SAT 96
[2024-11-25 07:36] LABS: Glucose, Whole Blood 217 mg/dL (60-115)
--- NOTE | 2024-11-25 09:07 | PC.NURSE ---
pharmacy asked to do med rec. pt calm. c/o left shoulder pain.
--- NOTE | 2024-11-25 10:18 | PHA.MEDREC ---
Pharmacy Consult ? Medication Reconciliation Pharmacy has completed the medication reconciliation. Spoke to patient to confirm medication list. Patient confirmed she takes metformin 500 mg 2 tabs bid with meals (has 2 tablets left in her bottle) and metoprolol succ 100 mg daily (last taken about 3 weeks ago because she ran out). She does not take anything else because she doesn't have a doctor.
--- NOTE | 2024-11-25 11:26 | PC.NURSE ---
Pt states that she wants to leave. Has appointment for Neur psych and doesn't feel need for psych consult in ED.
--- NOTE | 2024-11-25 12:24 | PC.NURSE ---
RN to Rn with Ysabel in [facility]. Pt willing to stay because there's a room with a TV and warmth.Pt doesn't remember speakng with provider ([facility]) today. Difficult to redirect.
[2024-11-25] MEDS: oxyCODONE HCl Immed Release 5 MG TABLET PO (12:37)
[2024-11-25 12:38] VITALS: BP 169/69; PULSE 73
[2024-11-25] MEDS: Metoprolol Succinate ER 100 MG TAB.ER.24H PO (12:38)
--- NOTE | 2024-11-25 13:34 | PM.PSYCN ---
History of Present Illness Date of Service: 11/25/2024 Chief Complaint: high sugar and high bp Reason for Consult: new dx of dementia, not able to take medications as prescribed, resistant to care Requesting physician: Jennifer Phan Discussed with referring provider: Yes Sources of Information: patient interviewed, chart reviewed and crisis/core team assessment reviewed HPI Narrative: Mrs. Fierro is a 69 year-old woman who was brought to [facility] ED due to confusion as to how she was taking medications, not remembering whether she took medications as prescribed and elevated BS on arrival. Collateral information from her niece, who is also her HCP, Elizabeth ([phone]) reports that pt has had increasing confusion taking medication as prescribed, over spending money and not remembering and reporting it as fraud. Pt has had a series of medical work up to assess memory/cognitive, including serum biomarker [id number] which was high, neuropsych testing by Dr. Tricia Echevarria-Racheal, PhD which showed concern for both AD and Frontotemporal Dementia. Pt seen in the ED. Pt presents as irritable and upset. She reports family are attempting to steal her money and this is the reason why they say she has cognitive issues. She denies being told that she has memory/cognitive impairments. She also denies any concerns in terms of her ability to manage medications or needing additional support due to cognitive decline. Diagnostics Vital Signs (24Hr): Vital Signs - 24 hr 11/24/24 16:09 11/24/24 22:09 11/25/24 06:28 Temperature 97.1 F 98.2 F 97.3 F Pulse Rate 92 90 73 Respiratory Rate 17 16 16 Blood Pressure 117/58 L 132/59 L 169/69 H Pulse Oximetry 100 97 96 Oxygen Delivery Method Room Air Room Air Room Air 11/25/24 12:38 Temperature Pulse Rate 73 Respiratory Rate Blood Pressure 169/69 H Pulse Oximetry Oxygen Delivery Method BMI result Body Mass Index 29.5 Labs 11/24/24 12:41 11/24/24 12:41 Labs: Laboratory Results - last 48 hr 11/24/24 11/24/24 11/24/24 12:41 15:53 16:48 WBC 7.6 RBC 4.06 L Hgb 13.5 Hct 37.3 MCV 91.9 MCH 33.3 H MCHC 36.2 H RDW 11.8 Plt Count 219 MPV 8.7 L Immature Gran % (Auto) 0.5 H Neut % (Auto) 64.0 Lymph % (Auto) 28.9 Evangeline % (Auto) 5.9 Eos % (Auto) 0.4 Baso % (Auto) 0.3 Lymph # (Auto) 2.2 Evangeline # (Auto) 0.5 Eos # (Auto) 0.0 Baso # (Auto) 0.0 Abs Immat Gran (auto) 0.04 H Absolute Neuts (auto) 4.9 Absolute Nucleated RBC 0.000 Nucleated RBC % (auto) 0.0 Sodium 138 Potassium 4.2 Chloride 104 Carbon Dioxide 24 Anion Gap 14 BUN 12 Creatinine 0.64 Estim Creat Clear Calc 96.3 Estimated GFR > 60 POC Glucose 286 H Random Glucose 407 H* Lactic Acid 1.2 Calcium 10.1 Magnesium 1.6 Total Bilirubin 0.4 AST 16 ALT 13 Alkaline Phosphatase 56 Total Protein 7.3 Albumin 4.5 Vitamin B12 933 H TSH 0.45 Urine Color Yellow Urine Appearance Clear Urine pH 6.0 Ur Specific [place] >= 1.030 H Urine Protein 30 (1+) H Urine Glucose (UA) >=1000 H Urine Ketones 80 Urine Blood Negative Urine Nitrite Negative Ur Leukocyte Esterase Negative Urine RBC 0-2 Urine WBC 0-5 Ur Squamous Epith Cells 0-2 Urine Bacteria None Seen Hyaline Casts 0-2 COVID-19 (KIRTI) Negative COVID-19 Clin Com See Note 11/24/24 11/24/24 11/25/24 17:43 20:53 07:02 WBC RBC Hgb Hct MCV MCH MCHC RDW Plt Count MPV Immature Gran % (Auto) Neut % (Auto) Lymph % (Auto) Ev[place]eline % (Auto) Eos % (Auto) Baso % (Auto) Lymph # (Auto) [place] # (Auto) Eos # (Auto) Baso # (Auto) Abs Immat Gran (auto) Absolute Neuts (auto) Absolute Nucleated RBC Nucleated RBC % (auto) Sodium Potassium Chloride Carbon Dioxide Anion Gap BUN Creatinine Estim Creat Clear Calc Estimated GFR POC Glucose 245 H 353 H* 217 H Random Glucose Lactic Acid Calcium Magnesium Total Bilirubin AST ALT Alkaline Phosphatase Total Protein Albumin Vitamin B12 TSH Urine Color Urine Appearance Urine pH Ur Specific [place] Urine Protein Urine Glucose (UA) Urine Ketones Urine Blood Urine Nitrite Ur Leukocyte Esterase Urine RBC Urine WBC Ur Squamous Epith Cells Urine Bacteria Hyaline Casts COVID-19 (KIRTI) COVID-19 Clin Com Imaging Radiology Impressions: ITS Impressions Head CT 11/24/24 16:33 IMPRESSION: No acute intracranial abnormality. Electronically signed by: Yayo Carlson MD 11/25/2024 07:56 AM EDT RP Mental Status Exam Mental Status Exam Narrative: Appearance: wearing hospital gown, fair hygiene, in NAD behavior: somewhat guarded Psychomotor: no agitation or retardation noted Speech: mostly clear, regular rate/rhythm/volume, spontaneous TP: mostly linear TC: wanting to go home Mood: upset Affect: congruent, irritable edge SI: denies HI: denies VH/AH: no overt signs Delusions: paranoid towards family thinking they want to steal from her, does not believe validity of work up already completed. Insight/judgment: impaired x 2. Memory/cog: alert, oriented to place, not so much to situation. 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 Fierro is a 69 year-old woman recently dx with AD and frontotemporal dementia. Pt;s niece and HCP has reported increasing concern in terms of her ability to manage her medications (taking more than prescribed, not remembering to take them), not able to manage her finances, impulsive behaviors, more suspicious towards family. Pt seen today and presents as irritable, with limited insight into memory/cognitive impairments and need for support. She also presents with paranoid ideas towards family. Discussed with HCP starting risperidone for paranoid ideas. We also discussed referral to psychiatry to manage behavioral components of dementia. Elizabeth De La Cruz would like to try patient going back home with additional supports and planning terminal make up operator in the community to eventually placement. PLAN 1. start risperidone 1mg po BID. 2. continue OP treatment with neurology, PCP 3. case management to help with additional referral for support at home. Total time managing care of this patient today ____ minutes.
[2024-11-25 14:10] VITALS: BP 129/64; PULSE 88; RESP 18; TEMP 36.1; O2SAT 97
--- NOTE | 2024-11-25 14:11 | PC.NURSE ---
Pt ambulating with steady gait with cane; pleasant, confused; vss
--- NOTE | 2024-11-25 14:21 | MHC.CM.ED ---
Addendum entered by Karen Trimble 11/25/24 15:35: Received notification from Peña Levine NP that patient will not be admitted to [facility]. Elizabeth, Niece/HCP, is looking to take patient home with additional help in the home. Spoke with Elizabeth via telephone at [phone]. After a long discussion about conversation with Julianna Pompa NP and options available, Elizabeth is agreeable to taking patient home tomorrow with Parvez SHULTZ for behavioral health services and assistance with medication compliance and referral to [facility] to see if patient would qualify for any additional services at home. Elizabeth would like to be the point of contact. Elizabeth will transport patient home tomorrow 11/26 at 2pm. Patient, Ysabel RN and Dr Pritchard aware. Original Note: Patient is currently in ER overflow. Received notification from Yasmin of Care Team that patient is cleared from Care Team. Case Management consult received. Psych consult is pending. CM consult deferred until Psych consult complete.
[2024-11-25 16:00] VITALS: BP 137/64; PULSE 80; RESP 20; TEMP 36.1; O2SAT 99
[2024-11-25 16:39] LABS: Glucose, Whole Blood 275 mg/dL (60-115)
--- NOTE | 2024-11-25 16:40 | PC.NURSE ---
Pt's BG POC 275; provider made aware
--- NOTE | 2024-11-25 17:19 | MHC.EDTECH ---
pt voided in the bathroom 1x
--- NOTE | 2024-11-25 17:22 | MHC.EDTECH ---
pt ate 100% dinner
--- NOTE | 2024-11-25 17:27 | PC.NURSE ---
Pt irritable, paranoid, stating she had no idea she was a pt and wanted to leave, that her family brought her here falsely , etc; pt redirected repeatedly
[2024-11-25 19:53] VITALS: BP 151/76; PULSE 91; RESP 20; TEMP 36.3; O2SAT 95
[2024-11-25 21:14] LABS: Glucose, Whole Blood 369 mg/dL (60-115)
[2024-11-25 22:00] VITALS: BP 125/66; PULSE 82; RESP 18; TEMP 36.1; O2SAT 98
[2024-11-26 06:00] VITALS: BP 158/78; PULSE 97; RESP 18; TEMP 36.2; O2SAT 98
--- NOTE | 2024-11-26 06:31 | PC.NURSE ---
Assumed care of pt at 1900. Pt intermittently?confused. A&O x 1-3, unable to grasp her situation. Blood glucose at bedtime 369. ED CM provider notified, no new orders at this time. Pt given regularly scheduled metformin, per MAY. Pt c/o headache and anxiety, ED provider notified, new orders for meds shingles roofer per MAY. Pt ambulating to the bathroom?independently with a steady gait. Able to make needs known. Bed in lowest position with wheels locked. Non skid footwear provided. Call gilbert in reach.??
[2024-11-26 08:26] LABS: Glucose, Whole Blood 273 mg/dL (60-115)
[2024-11-26] MEDS: oxyCODONE HCl Immed Release 5 MG TABLET PO (09:21)
[2024-11-26 09:22] VITALS: BP 100/65; PULSE 103
[2024-11-26] MEDS: Metoprolol Succinate ER 100 MG TAB.ER.24H PO (09:22)
[2024-11-26 09:32] VITALS: BP 96/54; PULSE 101; RESP 16; TEMP 36.9; O2SAT 100
[2024-11-26 12:23] LABS: Glucose, Whole Blood 325 mg/dL (60-115)
[2024-11-26 14:26] VITALS: BP 143/62; PULSE 90; RESP 18; TEMP 36.7; O2SAT 98
[2024-11-26 14:29] VITALS: BP 143/62; PULSE 90; RESP 18; TEMP 36.7; O2SAT 98
== END 2024-11-26 15:05 | disposition home or self-care (01) ==
PROVIDERS: Physician Assistant Medical; Emergency Provider Emergency Medicine Emergency Medical Services; PCP Registered Nurse
DX: F03.90 Unspecified dementia, unspecified severity, without behavioral disturbance, psychotic disturbance, mood disturbance, and anxiety (principal); M25.512 Pain in left shoulder; R41.82 Altered mental status, unspecified; R00.0 Tachycardia, unspecified; E11.9 Type 2 diabetes mellitus without complications; R11.0 Nausea; R26.81 Unsteadiness on feet; Z79.84 Long term (current) use of oral hypoglycemic drugs; Z79.899 Other long term (current) drug therapy; Z91.148 Patient's other noncompliance with medication regimen for other reason; Z11.52 Encounter for screening for COVID-19; Z03.818 Encounter for observation for suspected exposure to other biological agents ruled out
CPT/HCPCS: 36415; 70450; 80053; 81001; 82607; 82947; 83605; 83735; 84443; 85025; 87635; 93005; 96360; 96361; 97166; 99285; S9485

== ENCOUNTER → 2024-11-24 12:30 | Outpatient (BNV) | payer MEDICARE, OTHER, SELFPAY | PROVIDERS: PCP Registered Nurse; Visit Provider Internal Medicine Cardiovascular Disease | DX: R00.0 Tachycardia, unspecified (principal) | CPT/HCPCS: 93010 ==

== ENCOUNTER → 2024-11-24 12:41 | Outpatient (BNV) | payer MEDICARE, OTHER, SELFPAY | PROVIDERS: Emergency Provider Emergency Medicine Emergency Medical Services; PCP Registered Nurse; Visit Provider Social Worker | DX: G30.1 Alzheimer's disease with late onset (principal); F02.818 Dementia in other diseases classified elsewhere, unspecified severity, with other behavioral disturbance | CPT/HCPCS: 99285 ==

== ENCOUNTER → 2024-11-24 16:18 | Outpatient (BNV) | payer MEDICARE, OTHER, SELFPAY | PROVIDERS: Emergency Provider Emergency Medicine Emergency Medical Services; PCP Registered Nurse; Visit Provider Radiology Diagnostic Radiology | DX: R41.82 Altered mental status, unspecified (principal) | CPT/HCPCS: 70450 ==

== ENCOUNTER 2024-11-27 12:02 | Outpatient (AMB) | payer MEDICARE, OTHER, SELFPAY ==
[2024-11-27 12:19] VITALS: BP 130/60; PULSE 86; RESP 16; O2SAT 97; BMI 25.9
--- NOTE | 2024-11-27 12:19 | MHC.OFFVIS ---
Vital Signs 11/27/24 12:19 Height 5 ft 8.5 in Weight 173 lb BMI 25.9 BP 130/60 Blood Pressure Location Rt brachial Position Sitting Respiration 16 Pulse 86 Pulse Oximetry (%) 97 Intake Visit Reasons: ENP: Memory Changes Cloth Piecer Required: No Accompanied by: Other Relationship Allergies No Known Allergies Allergy (Verified 11/24/24 12:30) HPI Comments Details: Yohana is a 69-year-old female patient with a past medical history of diabetes and hypertension who is presenting today for a memory evaluation. She is accompanied by her niece Nighat and Yohana reports that she is here today because family is making her . She does not believe that she has any concerning memory problems. She believes that her memory is normal for her age. Her niece Nighat reports that they noticed a decline in her memory since approximately December 2023 after she had a fall while at work. Since then, her memory and moods have been worsening. She presented to the emergency room this past week at which time she had an elevated blood glucose and elevated blood pressure. She was treated medically and was seen by Psychiatry who started her on Risperdal 1 mg twice daily with recommendations to continue outpatient treatment with Neurology. She has also seen neuropsych in the past and was given a diagnosis of Alzheimer's dementia and frontotemporal dementia. She has had elevated p-Tau 217 testing which showed an elevated value of 0.36. PET scanning was ordered however the patient canceled the order. Reversible causes for dementia were screen for including a TSH and a B12 level both of which were normal. She is very hostile towards her family and believes that they are making her do things again her will. She is concerned that they are going to kill her dog and that they are not allowing to have groceries in the house. She frequently accuses her family of trying to seal her money and feels that it is the reason why they tell others that she has memory problems. Memory evaluation: Onset of memory changes: She has not noticed any changes in her memory. Her niece started noticing significant memory concerns in December 2023 after a fall. Rate of progression: Her niece has stated that she has noticed some memory Cognitive: Difficulty remembering upcoming events: She admits to use of a calender. Getting lost: No, however she does not generally go places alone Difficulty keeping track of time: Pateint feels that she does not Difficulty finding appropriate words:Patient does not believe so Difficulty making decisions or problem-solving: Patient reports absolutely none Functional: Difficulty writing checks, paying bills: Patient reports absolutely not . Difficulty driving a car: Currently not driving Difficulty shopping alone: Patient tells me that she is not allowed to shop alone Difficulty performing household tasks: Patient reports absolutely none Difficulty managing own medications: No- Niece helps with that Difficulty pursuing hobbies/leisure activities: Dogs- She reports that she is not allowed to walk Change in gait: Walks with a cane. She is using a wheelchair today so nobody can critique the way she walks . She uses a cane at home. Social activities: Difficulty holding conversation: Patient reports absolutely not . Decreased social activity with family/friends:Reports that yes because she is not allowed to leave the house . She will sometimes call her neighbor or teacher of the visually impaired Less cooperative: Yes compared to the last 3 years (according to her niece) Less aware of others feeling/her full: Yes compared to the last 3 years (according to her niece) Less concerned about bathing/dressing/grooming: No Behavioral: Sad, depressed: Yes, she feels sad but notes that it is not in a psychological way but rather because she is being Anxious, worried: Feels very anxious that they are going to kill her dog and take their house Inpatient, fidgety:No Acts impulsively, disinhibited:No Change appetite or weight:Has lost weight which she feels is due to a lack of groceries . She is however is on [place] according to her niece. Change in sleep pattern, daytime fatigue: Tired at the end of the day and sleeps well at night. She does feel rested in the morning. Hallucinations:None MOCA: MOCA total: Executive:05/21 Namin/3 Attention:08/22 Language:05/19 Abstraction:04/20 Delayed recall: Orientation:08/22 [facility] Medical History (Updated 11/27/24 @ 12:05 by Emani Ramirez [facility]) Diabetes mellitus Memory changes Review of Systems Const Reports as per HPI Neuro Reports confusion (Oriented x3 though confused about situation. Repeats herself. ) Psych Reports confusion (Oriented x3 though confused about situation. Repeats herself. ) Physical Exam Vital Signs: Last Vital Signs Pulse 86 11/27/24 12:19 Resp 16 11/27/24 12:19 BP 130/60 11/27/24 12:19 Pulse Ox 97 11/27/24 12:19 BMI result Body Mass Index 25.9 Const General: alert, awake, Physically active and confusion (Oriented x3 though confused about situation. Repeats herself. ) Nutritional Appearance: overweight Orientation/consciousness: oriented to person, oriented to place, oriented to time and confusion (Oriented x3 though confused about situation. Repeats herself. ) Limitations: wheelchair Neuro General: oriented to person, oriented to place, oriented to time, confusion (Oriented x3 though confused about situation. Repeats herself. ) and Unable to assess gait Cranial nerves: Yes CN's II-XII intact bilaterally Cognition (Neuro): abnormal cognition Gait exam (Neuro): Unable to assess gait Psych Appearance: well kempt Mental Status: other (AOx3 but confused to situation ) Speech and movement: Clear speech present Affect: Hostile affect present and Irritable affect present Attitude: Guarded attititude/behavior present Thought process: Illogical thought process present Thought content: Paranoid delusions present Insight: Poor insight present (Psych) Judgement: Poor judgement present (Psych) Assessment & Plan Assessment & Plan (1) 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 Her existing workup has been consistent with AD and frontotemporal dementias. She was recently started on Risperdal 1 mg daily by Psychiatry during a recent emergency room visit. She will require close follow-up from both a psychiatric and neurological standpoint based on her behaviors which are putting significant strain on her family. I am recommending continuation of Risperdal 1 mg daily for now and to obtain a PET scan for further diagnosis guidance. I also highly recommend that a [facility] psych get involved as well as social work to better support the patient and family. [facility]NA is already scheduled for a visit next week. -Continue Risperdal 1 mg daily -Obtain official neuropsych report -Recommending PET scan for further diagnosis guidance (Prior PET scan was canceled by patient) -Highly recommend [facility]-psych referral (I will place referral to outpatient [facility]-psych team for assistance in behavioral management) -Discussed with Anibal if behaviors ecalate, she may require inpatient [facility]-psych care -[facility] is scheduled to have their first visit next week. 70 minutes was spent with the patient and her niece. During this time, review of prior records, in-depth evaluation of memory and behaviors, [place] screening testing, and explanation of the plan moving forward to both the patient and family. Frequent refocusing was required due to patient's memory and behaviors. Orders: Referrals Geriatric Psychiatry Referral F02.818 - Dementia in other diseases classified elsewhere, unspecified severity, with other behavioral disturbance, G30.1 - Alzheimer's disease with late onset Coding Level of Care Code New Pt Level 5 (56801) Diagnoses Alzheimer's type dementia with late onset with behavioral disturbance G30.1; F02.818
== END 2024-11-27 13:31 | disposition home or self-care (01) ==
LOC: HO.HSM 12:03
PROVIDERS: PCP Registered Nurse; Visit Provider Nurse Practitioner
DX: G30.1 Alzheimer's disease with late onset (principal); F02.818 Dementia in other diseases classified elsewhere, unspecified severity, with other behavioral disturbance
CPT/HCPCS: 99205

== ENCOUNTER → 2024-11-27 12:02 | Outpatient (BNVA) | payer MEDICARE, OTHER, SELFPAY | PROVIDERS: PCP Registered Nurse; Visit Provider Nurse Practitioner | DX: G30.1 Alzheimer's disease with late onset (principal); F02.818 Dementia in other diseases classified elsewhere, unspecified severity, with other behavioral disturbance | CPT/HCPCS: 99202 ==

== ENCOUNTER 2025-01-27 12:20 | Outpatient (AMB) | payer MEDICARE, OTHER, SELFPAY ==
--- NOTE | 2025-01-27 12:39 | A.OFFVIS_ITS ---
Vital Signs 01/27/25 12:46 Height 5 ft 8.5 in Weight 176 lb BMI 26.4 BP 138/78 Blood Pressure Location Rt brachial Position Sitting Respiration 16 Pulse 103 H Pulse Source Pulse Oximeter Pulse Oximetry (%) 97 Oxygen Delivery Method Room Air Intake Visit Reasons: after PET Protective Signal Repairer Required: No Accompanied by: Niece Allergies No Known Allergies Allergy (Verified 11/24/24 12:30) HPI Comments Details: Yohana is a 69-year-old female patient with a past medical history of diabetes and hypertension was evaluated as a new patient on 11/27/2024 for a memory evaluation. At the time of her last visit, she has been recently in the emergency room and seen by Psychiatry for behavioral disturbances and at time started on risperidone 1 mg twice daily. It was presumed at that time because she had an elevated amyloid doses interpretation she had Alzheimer's dementia in conjunction with a frontotemporal dementia. She had been seen by neuropsych and given this diagnosis. At the time of her initial visit, she was extremely hostile toward her niece who accompanied her. She was having extreme delusions and paranoia. Her MOCA score at the time of her last visit was 23/30 consistent with MCI. I ordered PET scan for further evaluation of possible Alzheimer's dementia. She had her PET scan 01/07/2025 which was a negative study. Yohana is here today for a follow up visit. She is again present with her niece who tells me that Yohana's behaviors have been much more manageable and she has been much less resistant and hostile toward other family members. She has been consistently taking her risperidone 1 mg twice daily. Her niece has however noted that perhaps her cognitive functioning has slightly declined even since our last visit in terms of being able to remember day-to-day tasks such as leaving medications that may be laid out for her to take at a specific time of day. Overall however, she is seemingly doing better on the risperidone. Yohana continues to live independently with very close care and communication with her niece who helps to coordinate her care, medications, and home life. She has been able to go to family functions recently though does get overwhelmed after a couple of hours. She does however report enjoying her family's company especially her small nieces and nephews. Her niece has encouraged her to attend the [employer] [facility] locally to continue being social and Yohana is considering this. She continues to eat 3 small meals a day at least though she does report some recent nausea related to some of her diabetic medications that have been switched around. She has meals on wheels, prepares a small breakfast for herself, and her niece does often bring prepared meals such as soups and meals that are easily re-heated [facility] Medical History (Updated 01/31/25 @ 07:26 by Grecia Clemente CNP) Diabetes mellitus Memory changes Review of Systems Const All systems reviewed & are unremarkable except as noted in HPI and below Neuro Reports confusion (Oriented x3 though confused about situation at times. Improved since last ) Psych Reports confusion (Oriented x3 though confused about situation at times. Improved since last ) Physical Exam Vital Signs: Last Vital Signs Pulse 103 H 01/27/25 12:46 Resp 16 01/27/25 12:46 BP 138/78 01/27/25 12:46 Pulse Ox 97 01/27/25 12:46 Oxygen Delivery Method Room Air 01/27/25 12:46 BMI result Body Mass Index 26.4 Const General: alert, awake, Physically active and confusion (Oriented x3 though confused about situation at times. Improved since last ) Nutritional Appearance: overweight Orientation/consciousness: oriented to person, oriented to place, oriented to time and confusion (Oriented x3 though confused about situation at times. Imp roved since last ) Limitations: wheelchair Neuro General: oriented to person, oriented to place, oriented to time and confusion (Oriented x3 though confused about situation at times. Improved since last ) Cranial nerves: Yes CN's II-XII intact bilaterally Cognition (Neuro): abnormal cognition Gait exam (Neuro): Normal gait present Psych Appearance: well kempt Mental Status: other (AOx3 but confused to situation ) Speech and movement: Clear speech present Affect: Labile affect present (Can be irritable or hostile but improved since last visit ) Attitude: cooperative and Guarded attititude/behavior present Insight: Limited insight present (Psych) Judgement: Limited judgement present (Psych) Assessment & Plan Assessment & Plan (1) Frontotemporal dementia: Code(s): G31.09 - Other frontotemporal neurocognitive disorder; F02.80 - Dementia in other diseases classified elsewhere, unspecified severity, without behavioral disturbance, psychotic disturbance, mood disturbance, and anxiety Category: Medical Plan Yohana is a 69-year-old female patient with a past medical history of diabetes and hypertension was evaluated as a new patient on 11/27/2024 for a memory evaluation. She had formal neuropsych testing who presumed Alzheimer's dementia and frontotemporal dementia. Her amyloid doses interpretation showed some probability for Alzheimer's dementia. Her recent PET scan however was negative which is some more definitive study. More likely, her diagnosis is more consistent with a frontotemporal dementia. She is however doing extremely well on risperidone 1 mg twice daily. She has been much more active with the self- care, social, and has had significant improvement since our last visit. Her niece however does notice some possible decline in cognition though her behaviors have improved tremendously. We will start a trial of donepezil 5 mg daily for memory support during the day. We will follow up in 1 month to see how she is doing with this. -Continue rispiridone 1mg BID -Start donepizil 5mg daily -Follow-up in 1 month or sooner if needed Medications: New donepezil 5 mg PO DAILY 30 tabs 5RF 30 days Coding Level of Care Code Est Pt Level 4 (53636) Diagnoses Frontotemporal dementia G31.09; F02.80
[2025-01-27 12:46] VITALS: BP 138/78; PULSE 103; RESP 16; O2SAT 97; BMI 26.4
--- OUTSIDE RECORDS SUMMARY | 2025-01-27 14:07 | XMS_ITS | Clinical Summary ---
Author Organization [facility] Address [address] [place] [address] Phone Care Team Providers Care Pumper Head Name Role Phone Unavailable Primary Care Provider Unavailabl e Encounters Date Type Department Care Team Description 01/07/2025 3:08 PM EDT - 01/07/2025 11:59 PM EDT Hospital Encounter [facility] PET Scan [address] [place] [address] Alzheimer disease (CMS/HCC V24, CMS/HCC V28) Discharge Disposition: Home or Self Care from Last 3 Months Social History Tobacco Use Types Packs/Day Years Used Date Smoking Tobacco: Never Assessed Comments Unknown Sex and Gender Information Value Date Recorded Sex Assigned at Not on file Legal Sex Female 6:39 AM EST Gender Identity Not on file Sexual Orientation Not on file Plan of Treatment Health Maintenance Due Date Last Done Comments Breast Cancer Screening 1955 Colorectal Cancer Screening: Colonoscopy 1955 Diabetes: Annual GFR (Glomerular Filtration Rate) 1955 Diabetes: Annual Foot Exam 10/18/1965 Diabetes: Annual Retina Eye Exam 10/18/1965 Cholesterol Screening (Lipid Panel) 10/09/2023 Falls Risk Assessment 10/09/2023 Hepatitis C Screening 10/09/2023 Medicare Annual Wellness Visit 10/09/2023 Osteoporosis Screening (Bone Density Screening) 10/09/2023 Social Influencers of Health Screening 10/09/2023 Depression Screening 03/19/2024 COVID-19 Vaccine ( season) 2024 07/13/2024, 11/27/2023, 05/28/2023, Additional history exists Influenza Vaccine (#1) 2024 4, 12/14/2021, 12/16/2020, Additional history exists Diabetes: Annual Urine Albumin-Creatinine Ratio (uACR) 01/07/2025 Diabetes: Blood Sugar Control Test (HGBA1C) 01/07/2025 DTaP,Tdap,and Td Vaccines (3 - Td or Tdap) 06/14/2034 06/14/2024, 03/29/2022 Zoster Vaccines Completed 12/14/2021, 10/2020, 12/25/2019 Pneumococcal Vaccine: 50+ Years Completed 03/29/2022 RSV Immunization Adult Patients Completed 11/19/2022 HIB Vaccines Aged Out No longer eligi ble based on patient's age to complete this topic HPV Vaccines Aged Out No longer eligi ble based on patient's age to complete this topic Hepatitis A Vaccines Aged Out No long er eligible based on patient's age to complete this topic Hepatitis B Vaccines Aged Out No long er eligible based on patient's age to complete this topic IPV Vaccines Aged Out No longer eligi ble based on patient's age to complete this topic MMR Vaccines Aged Out No longer eligi ble based on patient's age to complete this topic Meningococcal ACWY Vaccine Aged Out N o longer eligible based on patient's age to complete this topic Meningococcal B Vaccine Aged Out No l onger eligible based on patient's age to complete this topic RSV Immunization Patients Under 20 months Aged Out No longer eligible based on patient's age to complete this topic Varicella Vaccines Aged Out No longer eligible based on patient's age to complete this topic Procedures Procedure Name Priority Date/Time Associated Diagnosis Comments PET CT LIMITED AREA INITIAL Routine 01/07/2025 5:30 PM EDT Alzheimer disease ([facility] V24, [facility] V28) from Last 3 Months Results * PET CT Limited Area Initial (01/07/2025 5:30 PM EDT) Anatomical Region Laterality Modality Body Radiographic Karen ging 01/16/2025 11:0 7 AM EDT Impressions 01/20/2025 12:08 PM EST Negative study This scan was interpreted using consensus imaging with another board certified radiologist, Dr. Farah. Please note: The CT was acquired at a low radiation dose settings. The images are of nondiagnostic quality and used solely for purposes of attenuation correction and slice localization for the PET scan. If a diagnostic CT study is desired it must be ordered separately. -------- FINAL REPORT -------- Dictated By: Marlene Benitez Dictated Date: 01/16/2025 12:07 ET Assigned Physician: Marlene Benitez Reviewed and Electronically Signed By: Marlene Benitez Signed Date: 01/20/2025 12:08 ET Workstation ID: [id number] Transcribed By: Self Edit Transcribed Date: 01/16/2025 12:07 ET Narrative 01/20/2025 12:08 PM EST INDICATION: PTAU 217 TECHNIQUE: F-18 Amyvid PET imaging was performed from of the head in a single acquisition with data set reconstructed in axial, coronal, and sagittal planes at the computer workstation with fused data from both the PET imaging study and attenuation correction CT. The CT portion of the examination was done strictly for attenuation correction and is not a true diagnostic CT examination. DLP: 1119 mGy-cm Radiopharmaceutical: 9.0 mCi of F-18 Florbetapir IV. COMPARISON: Correlation is made with outside head CT dated November 2024. FINDINGS: HEAD AND NECK: Preservation of de la garza-white matter differentiation. Procedure Note Marlene Benitez MD - 01/20/2025 INDICATION: PTAU 217 TECHNIQUE: F-18 Amyvid PET imaging was performed from of the head in asingle acquisition with data set reconstructed in axial, coronal, andsagittal planes at the computer workstation with fused data from both thePET imaging study and attenuation correction CT. The CT portion of theexamination was done strictly for attenuation correction and is not a truediagnostic CT examination. DLP: 1119 mGy-cm Radiopharmaceutical: 9.0 mCi of F-18 Florbetapir IV. COMPARISON: Correlation is made with outside head CT dated November2024. FINDINGS: HEAD AND NECK: Preservation of de la garza-white matter differentiation. IMPRESSION: Negative study This scan was interpreted using consensus imaging with another boardcertified radiologist, Dr. Farah. Please note: The CT was acquired at a low radiation dose settings. The images are ofnondiagnostic quality and used solely for purposes of attenuationcorrection and slice localization for the PET scan. If a diagnostic CTstudy is desired it must be ordered separately. -------- FINAL REPORT -------- Dictated By: Marlene Benitez Dictated Date: 01/16/2025 12:07 ET Assigned Physician: Marlene Benitez Reviewed and Electronically Signed By: Marlene Benitez Signed Date: 01/20/2025 12:08 ET Workstation ID: [id number] Transcribed By: Self Edit Transcribed Date: 01/16/2025 12:07 ET Reena August [facility] Final Result from Last 3 Months Insurance MEDICARE [facility]
--- OUTSIDE RECORDS SUMMARY | 2025-01-27 14:07 | XMS_ITS | Data Portability ---
Author Organization [facility] Pain Managem ent, PAIN OFFICE Address [address] [place] [address] Care Team Providers Care Commercial Artist Name Role Phone PROMISE CORCORAN Primary Care Provider [phone] Assessment Encounter Date Assessment Date Assessment LastModified by Organization Details LastModified Time 09/26/2023 09/26/2023 Yohana Fierro is a 67 year old woman with complaints of low back pain radiating into left lower extremity. MRI Lumbar spine shows mild disc herniation moderate degenerative facet arthropathy L3-4 causing mild flattening of the dural sac and very mild left-sided foraminal stenosis. Mild disc herniation and marked degenerative facet arthropathy L4-5 causing mild flattening of the dural sac and mild left-sided foraminal stenosis. She is here for a Lumbar epidural steroid injection under fluoroscopic guidance . The risks and benefits of the procedure were discussed in detail. She wishes to proceed. She will follow up as needed. She can restart Eliquis tomorrow. [email or web address] Not available 09/26/2023 10:58:08 01/08/2024 01/08/2024 Yohana Fierro is a 68 year old woman with features of trochanteric bursitis in right hip She has been having increased pain since a recent fall. She is here for a right trochanteric bursal steroid injection under fluoroscopic guidance .The risks and benefits of the procedure were discussed in detail. She is on eliquis. This cannot be stopped for minor procedures and she understands the bleeding risk and wishes to proceed today. She reports she is not taking eliquis since the fall on her own. [email or web address] Not available 01/08/2024 11:21:18 01/29/2024 01/29/2024 Yohana Fierro is a 68 year old woman with complaints of low back pain radiating into left lower extremity. MRI Lumbar spine shows mild disc herniation moderate degenerative facet arthropathy L3-4 causing mild flattening of the dural sac and very mild left-sided foraminal stenosis. Mild disc herniation and marked degenerative facet arthropathy L4-5 causing mild flattening of the dural sac and mild left-sided foraminal stenosis. She is here for a Lumbar epidural steroid injection under fluoroscopic guidance . The risks and benefits of the procedure were discussed in detail. She wishes to proceed. She will follow up as needed. [email or web address] Not available 01/29/2024 14:56:51 05/14/2024 05/14/2024 Yohana Fierro is a 68 year old woman with features of trochanteric bursitis in right hip She has been having increased pain since a recent fall. She is here for a right trochanteric bursal steroid injection under fluoroscopic guidance .The risks and benefits of the procedure were discussed in detail. She is on eliquis. I am unsure if she is taking it. This cannot be stopped for minor procedures and she understands the bleeding risk and wishes to proceed today. She reports she is not taking eliquis since the fall on her own. [email or web address] Not available 05/14/2024 13:09:05 07/08/2024 07/08/2024 Yohana Fierro is a 68 year old woman with complaints of low back pain radiating into left lower extremity. MRI Lumbar spine shows mild disc herniation moderate degenerative facet arthropathy L3-4 causing mild flattening of the dural sac and very mild left-sided foraminal stenosis. Mild disc herniation and marked degenerative facet arthropathy L4-5 causing mild flattening of the dural sac and mild left-sided foraminal stenosis. She is here for a Lumbar epidural steroid injection under fluoroscopic guidance . The risks and benefits of the procedure were discussed in detail. She wishes to proceed. She will follow up as needed. [email or web address] Not available 07/08/2024 14:50:11 Plan of Treatment Reminders Order Date Submit Date Provider Last Modified By Organization Details Last Modified Time Details Appointments None record ed. Lab None record ed. Referral None record ed. Procedures None record ed. Surgeries None record ed. Imaging None record ed. Medication Orders None record ed. Patient TargetsNo targets recorded. Patient Instructions Encounter Date Encounter Id Patient Instructions Last Modified By Organization Details Last Modified Time 01/08/2024 [id number] She was advised against bed rest lasting longer than four days and to continue activities as tolerated. [email or web address] Not available 01/08/2024 11:17:53 05/14/2024 [id number] She was advised against bed rest lasting longer than four days and to continue activities as tolerated. [email or web address] Not available 05/14/2024 13:06:16 Reason for Referral None Reported. 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 Procedures Surgical History Date Name Laterality Status Provider Name and Address Organization Details Recorded Time 07/09/19 25 Lumbar Epidural steroid injection under fluoroscopic guidance completed Nilesh Short MD [address] , [address], [place], [address], [place] [facility] 07/08/2024 14:50:53 05/14/19 25 Greater Trochanteric Bursa Steroid Injection completed Nilesh Short MD [address] , [address], [place], [address], [place] [facility] 05/14/2024 13:07:48 01/29/20 24 Lumbar Epidural steroid injection under fluoroscopic guidance completed Nilesh Short MD [address] , [address], [place], [address], [place] [facility] 01/29/2024 14:56:20 01/08/20 24 Greater Trochanteric Bursa Steroid Injection completed Nilesh Short MD [address] , [address], [place], [address], [place] [facility] 01/08/2024 11:19:44 09/26/19 24 Lumbar Epidural steroid injection under fluoroscopic guidance completed Nilesh Short MD [address] , [address], [place], [address], [place] [facility] 09/26/2023 10:59:16 05/22/19 24 Lumbar Epidural steroid injection under fluoroscopic guidance completed Nilesh Short MD [address] , [address], [place], [address], [place] [facility] 05/22/2023 10:02:07 01/25/20 23 Lumbar Epidural steroid injection under fluoroscopic guidance completed Nilesh Short MD [address] , [address], [place], [address], [place] [facility] 01/24/2023 11:06:05 11/01/19 23 Lumbar Epidural steroid injection under fluoroscopic guidance completed Nilesh Short MD [address] , [address], [place], [address], [place] [facility] 10/31/2022 14:26:34 08/02/19 23 Lumbar Epidural steroid injection under fluoroscopic guidance completed Nilesh Short MD [address] , [address], [place], [address], [place] [facility] 08/01/2022 14:32:20 04/19/19 23 Lumbar Epidural steroid injection under fluoroscopic guidance completed Nilesh Short MD [address] , [address], [place], [address], [place] [facility] 04/19/2022 11:31:56 12/28/19 22 Lumbar Epidural steroid injection under fluoroscopic guidance completed Nilesh Short MD [address] , [address], [place], [address], [place] [facility] 12/27/2021 11:29:09 09/07/19 22 Lumbar Epidural steroid injection under fluoroscopic guidance completed Nilesh Short MD [address] , [address], [place], [address], [place] [facility] 09/06/2021 10:58:28 05/19/19 22 Lumbar Epidural steroid injection under fluoroscopic guidance completed Nilesh Short MD [address] , [address], [place], [address], [place] [facility] 05/18/2021 11:28:34 01/12/20 21 Lumbar Epidural steroid injection under fluoroscopic guidance completed Nilesh Short MD [address] , [address], [place], [address], [place] [facility] 01/11/2021 16:21:04 07/28/19 21 Lumbar Epidural steroid injection under fluoroscopic guidance completed Nilesh Short MD [address] , [address], [place], [address], [place] [facility] 07/27/2020 10:43:42 04/27/19 21 Greater Trochanteric Bursa Steroid Injection completed Nilesh Short MD [address] , [address], [place], [address], [place] [facility] 04/28/2020 14:22:40 02/03/20 20 Lumbar Epidural steroid injection under fluoroscopic guidance completed Nilesh Short MD [address] , [address], [place], [address], [place] [facility] 02/03/2020 15:06:15 11/04/19 20 Lumbar Epidural steroid injection under fluoroscopic guidance completed Nilesh Short MD [address] , [address], [place], [address], [place] [facility] 11/05/2019 14:19:41 08/26/19 20 Greater Trochanteric Bursa Steroid Injection completed Nilesh Short MD [address] , [address], [place], [address], [place] [facility] 08/27/2019 15:29:40 04/30/19 20 Greater Trochanteric Bursa Steroid Injection completed Nilesh Short MD [address] , [address], [place], [address], [place] [facility] 04/30/2019 14:02:37 01/30/20 19 Lumbar Epidural steroid injection under fluoroscopic guidance completed Nilesh Short MD [address] , [address], [place], [address], [place] [facility] 01/29/2019 16:41:22 11/13/19 19 Greater Trochanteric Bursa Steroid Injection completed Nilesh Short MD [address] , [address], [place], [address], [place] [facility] 11/13/2018 11:09:25 09/25/19 19 Lumbar Epidural steroid injection under fluoroscopic guidance completed Nilesh Short MD [address] , [address], [place], [address], [place] [facility] 09/24/2018 11:04:25 06/26/19 19 Greater Trochanteric Bursa Steroid Injection completed Nilesh Short MD [address] , [address], [place], [address], [place] [facility] 06/27/2018 10:45:38 03/26/19 19 Greater Trochanteric Bursa Steroid Injection completed Nilesh Short MD [address] , [address], [place], [address], [place] [facility] 03/28/2018 13:13:22 01/02/20 18 Lumbar Epidural steroid injection under fluoroscopic guidance completed Nilesh Short MD [address] , [address], [place], [address], [place] [facility] 01/01/2018 12:07:09 10/24/19 18 Greater Trochanteric Bursa Steroid Injection completed Nilesh Short MD [address] , [address], [place], [address], [place] [facility] 10/25/2017 11:03:21 08/09/19 18 Lumbar Epidural steroid injection under fluoroscopic guidance completed Nilesh Short MD [address] , [address], [place], [address], [place] [facility] 08/08/2017 10:10:30 07/18/19 18 Greater Trochanteric Bursa Steroid Injection completed Nilesh Short MD [address] , [address], [place], [address], [place] [facility] 07/23/2017 08:57:39 05/15/19 18 Greater Trochanteric Bursa Steroid Injection completed Nilesh Short MD [address] , [address], [place], [address], [place] [facility] 05/17/2017 08:32:11 04/03/19 18 Lumbar Epidural steroid injection under fluoroscopic guidance completed Nilesh Short MD [address] , [address], [place], [address], [place] [facility] 04/05/2017 09:31:12 11/29/19 17 Lumbar Epidural steroid injection under fluoroscopic guidance completed Nilesh Short MD [address] , [address], [place], [address], [place] [facility] 12/02/2016 11:46:03 06/29/19 17 Greater Trochanteric Bursa Steroid Injection completed Nilesh Short MD [address] , [address], [place], [address], [place] [facility] 06/29/2016 11:31:30 11/03/19 16 Lumbar Epidural steroid injection under fluoroscopic guidance completed Nilesh Short MD [address] , [address], [place], [address], [place] [facility] 11/03/2015 20:54:42 08/25/19 16 Lumbar Epidural steroid injection under fluoroscopic guidance completed Nilesh Short MD [address] , [address], [place], [address], [place] [facility] 08/25/2015 13:13:25 08/18/19 16 Greater Trochanteric Bursa Steroid Injection completed Nilesh Short MD [address] , [address], [place], [address], [place] [facility] 08/18/2015 13:36:42 Arthroscopic Surgery completed Dahiana Vu [facility] 08/06/2015 09:39:51 Carpal tunnel release completed Dahiana Vu [place] [facility] 08/06/2015 09:39:51 Other completed Dahiana Vu [place] [facility] 08/06/2015 09:39:51 Other completed Dahiana Vu [facility] 08/09/2015 13:38:08 Other completed Dahiana Vu [facility] 08/09/2015 13:38:08 Imaging Results None recorded. Procedure Notes None recorded. Medical Equipment None Reported. Allergies Allergen ID Allergen Name Allergen Category Reaction Reaction Severity Criticality Documentation Date Start Date Code Code System Note Provider Name and Address Organization Details Recorded Time 96839 Iodinated contrast media (substanc e) medicatio n Not available Not available Not available 08/06/2015 [address] witho ut react ion Dahiana mckeon, [place] [facility] 10:36:42 Medications Name Sig Start Date Stop Date Status Note LastModified by Organization Details LastModified Time cyclobenz aprine 10 mg tablet TAKE 1 TABLET BY MOUTH IN THE MORNING NEEDED active Not Available Not Available No t Available atorvasta tin 40 mg tablet TAKE 1 TABLET BY MOUTH EVERY DAY active Not Available Not Available No t Available silver sulfadiaz ine 1 % topical cream 05/18 completed Not Available Not Available Not Available metformin 500 mg tablet TAKE 2 TABLETS BY MOUTH TWICE DAILY active Not Available Not Available No t Available Qvar 80 mcg/actua tion Metered Aerosol oral inhaler INHALE 2 PUFFS BY INHALATI ON ROUTE 2 TIMES PER DAY FOR 30 DAYS active Not Available Not Available No t Available prednison e 10 mg tablet 11/03 completed Not Available Not Available Not Available doxycycli ne hyclate 100 mg capsule 03/26 completed Not Available Not Available Not Available atorvasta tin 20 mg tablet 06/25 completed Not Available Not Available Not Available diphenhyd ramine 50 mg capsule TAKE 1 TABLET BY MOUTH 12 HOURS PRIOR TO SCAN AND REPEAT [address] SCAN 05/22 completed Not Available Not Available Not Available citalopra m 40 mg tablet TAKE 1 TABLET BY MOUTH EVERY MORNING 04/27 completed Not Available Not Available Not Available trazodone 50 mg tablet TAKE 1/2 TABLET BY MOUTH TWO TIMES DAILY NEEDED FOR ANXIETY, AGITATIO N, OR INSOMNIA active Not Available Not Available No t Available azithromy josue 250 mg tablet 08/25 completed Not Available Not Available Not Available ofloxacin 0.3 % eye drops 11/12 completed Not Available Not Available Not Available metoprolo l succinate ER 50 mg tablet,ex tended release 24 hr 1 tab twice daily 05/18 completed 1 takes 1.5 tab twice daily Not Available Not Available Not Available hydrocodo ne 5 mg-acetam inophen 325 mg tablet TAKE 1 TO 2 TABLETS BY MOUTH EVERY 8 HOURS NEEDED FOR PAIN. MAXIMUM DAILY DOSE IS 6 active Not Available Not Available No t Available tretinoin 0.025 % topical cream PEA SIZED AMOUNT AT BEDTIME EVERY 3RD DAY X1 WK THEN EVERY OTHER DAY X2ND WK THEN DAILY EVERY 3RD WK active Not Available Not Available No t Available alendrona te 70 mg tablet active Not Available Not Available Not Available clonazepa m 0.5 mg tablet TAKE 1 TABLET BY MOUTH AT BEDTIME active Not Available Not Available No t Available metoprolo l succinate ER 100 mg tablet,ex tended release 24 hr TAKE 1 TABLET BY MOUTH EVERY DAY DIRECTED active Not Available Not Available No t Available clonazepa m 1 mg tablet TAKE 1 TABLET BY MOUTH AT BEDTIME NEEDED. MAXIMUM DAILY DOSE IS 1 active Not Available Not Available No t Available chlorthal idone 25 mg tablet TAKE 1 TABLET BY MOUTH EVERY DAY active Not Available Not Available No t Available sulfameth oxazole 800 mg-trimet hoprim 160 mg tablet 11/12 completed Not Available Not Available Not Available peg-elect rolyte solution 420 gram oral solution active Not Available Not Available Not Available omeprazol e 40 mg capsule,d elayed release TAKE 1 CAPSULE TWICE A DAY DIRECTED FOR 90 DAYS 05/18 completed Not Available Not Available Not Available triamcino lone acetonide 0.1 % topical cream active Not Available Not Available Not Available pantopraz ole 20 mg tablet,de layed release active Not Available Not Available Not Available ketorolac 0.5 % eye drops 09/24 completed Not Available Not Available Not Available cefadroxi l 500 mg capsule TAKE 2 CAPSULE BY MOUTH TWICE DAILY 01/17 completed Not Available Not Available Not Available oxycodone -acetamin ophen 5 mg-325 mg tablet 11/12 completed Not Available Not Available Not Available citalopra m 20 mg tablet 09/24 completed Not Available Not Available Not Available prednisol one acetate 1 % eye drops,daily pension 09/24 completed Not Available Not Available Not Available lorazepam 0.5 mg tablet TAKE 2 TABLETS BY MOUTH AT BED TIME 10/23 completed Not Available Not Available Not Available trazodone 100 mg tablet active Not Available Not Available Not Available benzonata te 100 mg capsule TAKE 1 CAPSULE BY MOUTH THREE TIMES DAILY NEEDED active Not Available Not Available No t Available cephalexi n 500 mg capsule active Not Available Not Available Not Available pantopraz ole 40 mg tablet,de layed release TAKE 1 TABLET BY MOUTH TWICE DAILY DIRECTED active Not Available Not Available No t Available erythromy josue 5 mg/gram (0.5 %) eye ointment APPLY TO RIGHT UPPER LID 4 TIMES A DAY AFTER PROCEDUR E 12/21 completed Not Available Not Available Not Available clotrimaz ole-betam ethasone 1 %-0.05 % topical cream APPLY TO AFFECTED AREA EVERY DAY active Not Available Not Available No t Available lidocaine 5 % topical patch APPLY 1 PATCH TOPICALL Y TO THE SKIN EVERY DAY. MAY WEAR UP TO 12 HOURS active Not Available Not Available No t Available warfarin 5 mg tablet 05/22 completed Not Available Not Available Not Available Humulin N NPH U-100 Insulin (isophane susp) 100 unit/mL subcutane ous INJECT 20 UNITS UNDER THE SKIN AT BEDTIME active Not Available Not Available No t Available fluticaso ne propionat e 44 mcg/actua tion HFA aerosol inhaler active Not Available Not Available Not Available metoprolo l tartrate 50 mg tablet 07/27 completed Not Available Not Available Not Available nystatin- triamcino lone 100,000 unit/g-0. 1 % topical cream active Not Available Not Available Not Available gabapenti n 300 mg capsule TAKE 2 CAPSULES BY MOUTH THREE TIMES DAILY active Not Available Not Available No t Available omeprazol e 20 mg capsule,d elayed release 01/01 completed Not Available Not Available Not Available cephalexi n 500 mg tablet TAKE 1 TABLET BY MOUTH FOUR TIMES DAILY FOR 7 DAYS 01/17 completed Not Available Not Available Not Available monteluka st 10 mg tablet active Not Available Not Available Not Available codeine 10 mg-guaife nesin 100 mg/5 mL oral liquid 11/12 completed Not Available Not Available Not Available mupirocin 2 % topical ointment active Not Available Not Available Not Available metoprolo l succinate ER 25 mg tablet,ex tended release 24 hr 4 tabs at bedtime 03/26 completed Not Available Not Available Not Available irbesarta n 150 mg tablet TAKE 1 TABLET BY MOUTH EVERY DAY active Not Available Not Available No t Available lorazepam 1 mg tablet TAKE 1 TABLET BY MOUTH DAILY 05/18 completed Not Available Not Available Not Available azelastin e 137 mcg (0.1 %) nasal spray SPRAY 2 SPRAYS INTO NOSTRIL( S) TWICE DAILY DIRECTED active Not Available Not Available No t Available fluticaso ne 100 mcg-salme terol 50 mcg/dose blistr powdr for inhalatio n INHALE 1 PUFF BY MOUTH TWICE DAILY active Not Available Not Available No t Available albuterol sulfate HFA 90 mcg/actua tion aerosol inhaler INHALE 2 PUFFS INTO THE LUNGS EVERY 6 HOURS NEEDED active Not Available Not Available No t Available hydrocort isone 2.5 % topical ointment 05/18 completed Not Available Not Available Not Available sulconazo le 1 % topical solution Apply TO affected toenails every DAY. active Not Available Not Available No t Available methylpre dnisolone 16 mg tablet 05/22 completed Not Available Not Available Not Available fluticaso ne propionat e 50 mcg/actua tion nasal spray,daily pension SPRAY 2 SPRAYS INTO EACH NOSTRIL EVERY DAY active Not Available Not Available No t Available sertralin e 50 mg tablet 09/24 completed Not Available Not Available Not Available ipratropi um bromide 21 mcg (0.03 %) nasal spray INHALE 2 SPRAYS INTO BOTH NOSTRILS THREE TIMES A DAY DIRECTED active Not Available Not Available No t Available glipizide 5 mg tablet TAKE 2 TABLETS BY MOUTH TWICE DAILY DIRECTED active Not Available Not Available No t Available amoxicill in 875 mg-potass ium clavulana te 125 mg tablet TAKE 1 TABLET BY MOUTH EVERY 12 HOURS FOR 7 DAYS 07/08 completed Not Available Not Available Not Available escitalop roseanne 10 mg tablet TAKE 1 TABLET BY MOUTH EVERY DAY DIRECTED WITH 20MG TABLET active Not Available Not Available No t Available escitalop roseanne 20 mg tablet TAKE 1 TABLET BY MOUTH DAILY DIRECTED active Not Available Not Available No t Available clonazepa m 0.25 mg disintegr ating tablet 08/25 completed Not Available Not Available Not Available bupropion HCl XL 300 mg 24 hr tablet, extended release TAKE 1 TABLET BY MOUTH EVERY MORNING DIRECTED . MAXIMUM DAILY DOSE IS 1 TABLET active Not Available Not Available No t Available bupropion HCl XL 150 mg 24 hr tablet, extended release 01/11 completed Not Available Not Available Not Available nitrofura ntoin monohydra te/macroc rystals 100 mg capsule 02/02 completed Not Available Not Available Not Available fondapari nux 10 mg/0.8 mL subcutane ous solution syringe INJECT 1 SYRINGE SUBCUTAN EOUSLY ONCE A DAY DIRECTED . SEVEN SYRINGE. 06/28 completed Not Available Not Available Not Available Flovent HFA 110 mcg/actua tion aerosol inhaler INHALE 2 PUFFS BY MOUTH TWICE DAILY NEEDED active Not Available Not Available No t Available Accu-Chek Multiclix Lancet active Not Available Not Available Not Available Asmanex Twisthale r 220 mcg/actua tion(30 doses) breath activated inhalr 05/22 completed Not Available Not Available Not Available BD Ultra-Fin e Short Pen Needle 31 gauge x 08/01 active Not Available Not Available Not Available Pulmicort Flexhaler 90 mcg/actua tion breath activated 05/22 completed Not Available Not Available Not Available Flovent Diskus 100 mcg/actua tion powder for inhalatio n INHALE 1 PUFF BY MOUTH TWICE DAILY active Not Available Not Available No t Available OneTouch Verio test strips USE TO TEST 2 TO 3 TIMES A DAY active Not Available Not Available No t Available Linzess 145 mcg capsule TAKE 1 CAPSULE BY MOUTH EVERY DAY active Not Available Not Available No t Available Eliquis 5 mg tablet TAKE 1 TABLET BY MOUTH TWICE DAILY DIRECTED . MAXIMUM DAILY DOSE IS 2 2024 active Yohana has not been taking her Eliquis as of mid to late December Not Available Not Available Not Available BD Insulin Syringe Ultra-Fin e 1 mL 31 gauge x 08/01 USE 1 SYRINGE ONCE A DAY FOR INSULIN INJECTIO NS active Not Available Not Available No t Available Humulin N NPH U-100 Insulin KwikPen 100 unit/mL (3 mL) subcutane ous active Not Available Not Available Not Available Trulicity 1.5 mg/0.5 mL subcutane ous pen injector active Not Available Not Available Not Available Trulicity 0.75 mg/0.5 mL subcutane ous pen injector INJECT 1 PEN SUBCUTAN EOUSLY ONCE A WEEK 01/11 completed Not Available Not Available Not Available OneTouch Verio Flex Meter active Not Available Not Available Not Available Yuvafem 10 mcg vaginal tablet INSERT 1 TABLET VAGINALL Y TWICE A WEEK DIRECTED active Not Available Not Available No t Available Linzess 72 mcg capsule TAKE 1 CAPSULE BY MOUTH EVERY DAY active Not Available Not Available No t Available Flucelvax Quad (PF) 60 mcg (15 mcg x 4)/0.5 mL IM syringe VACCINAT ION ADMINIST ERED BY [employer] 03/13 completed Not Available Not Available Not Available Shingrix (PF) 50 mcg/0.5 mL intramusc ular suspensio n, kit PHARMACY ADMINIST ERED 07/27 completed Not Available Not Available Not Available Eliquis DVT-PE Treatment 30-Day Starter 5 mg (74 tablets) in dose pack 2 TABLET BY MOUTH 2 TIMES A DAY FOR 7 DAYS,FOL LOWED BY 1 TABLET BY MOUTH TWICE DAILY FOR 23 DAYS active Not Available Not Available No t Available Flucelvax Quad (PF) 60 mcg (15 mcg x 4)/0.5 mL IM syringe TO BE ADMINIST ERED BY [employer] FOR IMMUNIZA TION 12/21 completed Not Available Not Available Not Available Flucelvax Quad (PF) 60 mcg (15 mcg x 4)/0.5 mL IM syringe 11/03 completed Not Available Not Available Not Available Flucelvax Quad (PF) 60 mcg (15 mcg x 4)/0.5 mL IM syringe PHARMACY ADMINIST ERED 02/02 completed Not Available Not Available Not Available Trulicity 3 mg/0.5 mL subcutane ous pen injector ADMINIST ER 3MG UNDER THE SKIN EVERY WEEK active Not Available Not Available No t Available Trulicity 4.5 mg/0.5 mL subcutane ous pen injector INJECT 4.5 MG UNDER THE SKIN EVERY WEEK active Not Available Not Available No t Available Mounjaro 7.5 mg/0.5 mL subcutane ous pen injector ADMINIST ER 7.5 MG UNDER THE SKIN 1 TIME A WEEK DIRECTED active Not Available Not Available No t Available Mounjaro 5 mg/0.5 mL subcutane ous pen injector ADMINIST ER 5 MG UNDER THE SKIN 1 TIME A WEEK DIRECTED active Not Available Not Available No t Available Mounjaro 10 mg/0.5 mL subcutane ous pen injector ADMINIST ER 10 MG UNDER THE SKIN 1 TIME A WEEK DIRECTED active Not Available Not Available No t Available Mounjaro 2.5 mg/0.5 mL subcutane ous pen injector ADMINIST ER 2.5 MG UNDER THE SKIN 1 TIME A WEEK DIRECTED active Not Available Not Available No t Available Vitals Date Recorded Body height Heart rate Oxygen saturation Oxygen saturation in Arterial blood by Pulse oximetry Pain severity - 0-10 verbal numeric rating [Score] - Reported Systolic And Diastolic Provider Name and Address Organization Details Last Updated DateTime 5 173.99 cm 89 /min 98 % 98 % 5 118/52 mm[Hg] Vero [place] - [facility] 5 11:45:26 Date Recorded Body height Heart rate Oxygen saturation Oxygen saturation in Arterial blood by Pulse oximetry Systolic And Diastolic Provider Name and Address Organization Details Last Updated DateTime 5 173.99 cm 82 /min 99 % 99 % 124/56 mm[Hg] Lisa Carty [place] - [facility] 5 13:35:13 Date Recorded Body height Oxygen saturation Oxygen saturation in Arterial blood by Pulse oximetry Heart rate Pain severity - 0-10 verbal numeric rating [Score] - Reported Systolic And Diastolic Provider Name and Address Organization Details Last Updated DateTime 4 173.99 cm 96 % 96 % 90 /min 1 116/52 mm[Hg] Nilesh good MD [address] [facility] , [address], [facility] [place], [address], [place] - [facility] 4 10:32:41 Date Recorded Body height Heart rate Oxygen saturation Oxygen saturation in Arterial blood by Pulse oximetry Systolic And Diastolic Provider Name and Address Organization Details Last Updated DateTime 4 173.99 cm 91 /min 97 % 97 % 133/61 mm[Hg] Lisa Carty [place] - [facility] 4 10:55:09 Date Recorded Body height Heart rate Oxygen saturation Oxygen saturation in Arterial blood by Pulse oximetry Systolic And Diastolic Provider Name and Address Organization Details Last Updated DateTime 4 173.99 cm 86 /min 96 % 96 % 117/41 mm[Hg] Lisa Carty [place] - [facility] 4 14:28:45 Social History Question Answer Notes LastModified by [employer] Details LastModified Time Tobacco Smoking Status Former Smoker Quit x 30 years Not Available [facility]/02/2020 03:16:10 Which Illicit Or Recreational Drugs Have You Used? No [id number] Information not available 01/02/2020 Education Post Graduate Doctorate Information not available 08/06/2015 Live Alone Or With Others? Alone [email or web address] Information not available 08/06/2015 Marital Status Single Informatio n not available 08/06/2015 What Was The Date Of Your Most Recent Tobacco Screening? 09/24/2018 [id number] Information not available 01/02/2020 How Many Years Have You Smoked Tobacco? 10 [id number] Information not available 01/02/2020 Sex: Unknown Functional Status Question Answer Note LastModified by [employer] Details LastModified Time What is your level of alcohol consumption? 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 Family History Relationship Description Onset Age of this Age Resolved Age Notes LastModified by Organization Details LastModified Time Mother Malignant neoplastic disease Kidney [email or web address] Not available 10/17 20:51:14 Father Malignant neoplastic disease Lung [email or web address] Not available 10/17 20:51:14 Medical History Condition Response Anxiety Disorder Y Diabetes Y Arthritis Y Migrane Y High Cholesterol Y Pulmonary Embolism Y Hypertension Y Depression Y Asthma Y Gynecological HistoryNo gynecological history recorded. Obstetrics History GPAL:G 0 P 0 0 0 0 Immunizations Vaccine Type Date Status Note Provider Nam e and Address Organization Details Recorded Time SARS-COV-2 (COVID-19) vaccine, UNSPECIFIED 12/17/2022 completed [facility] 01/24/2023 10:39:35 Past Encounters Encounter ID Performer Location Encounter Start Date Encounter Closed Date Diagnosis/Indication Diagnosis SNOMED-CT Code Diagnosis ICD10 Code Diagnosis IMO Codes Diagnosis Note [id number] Nilesh Short MD PAIN OFFICE [address] [place] [address] 08/06/2015 09:07:11 08/09/2015 09:57:38 Displacement of lumbar intervertebral disc without myelopathy 25823206 M51.26 Lumbosacra l radiculitis 63946338 M54.17 Greater tr ochanteric pain syndrome 7277426 M70.61 M70.62 Muscle pain 52951411 M79 .1 [id number] Nilesh Short MD PAIN OFFICE [address] [place] [address] 08/18/2015 10:49:01 08/18/2015 13:37:22 Greater trochanteric pain syndrome 4043453 M70.61 M70.62 Muscle pain 35198542 M79 .1 Displaceme nt of lumbar intervertebral disc without myelopathy 31213943 M51.26 Lumbosacra l radiculitis 37468271 M54.17 [id number] Nilesh Short MD PAIN OFFICE [address] [facility] [place] [address] 08/25/2015 11:28:15 08/25/2015 13:15:01 Greater trochanteric pain syndrome 8529423 M70.61 M70.62 Muscle pain 02801707 M79 .1 Displaceme nt of lumbar intervertebral disc without myelopathy 55530391 M51.26 Lumbosacra l radiculitis 81548372 M54.17 [id number] Nilesh Short MD PAIN OFFICE [address] [facility] [place] [address] 10/15/2015 08:51:49 10/23/2015 18:50:09 Greater trochanteric pain syndrome 6724512 M70.61 M70.62 Muscle pain 22163292 M79 .1 Displaceme nt of lumbar intervertebral disc without myelopathy 76612780 M51.26 Lumbosacra l radiculitis 06911506 M54.17 [id number] Nilesh Short MD PAIN OFFICE [address] [facility] [place] [address] 11/03/2015 10:59:49 11/04/2015 09:49:50 Lumbosacral radiculitis 72391045 M54.17 Displaceme nt of lumbar intervertebral disc without myelopathy 34707424 M51.26 Greater tr ochanteric pain syndrome 8013816 M70.61 M70.62 Muscle pain 96308587 M79 .1 [id number] Nilesh Short MD PAIN OFFICE [address] [facility] [place] [address] 05/22/2016 08:34:09 05/22/2016 09:54:32 Displacement of lumbar intervertebral disc without myelopathy 02983182 M51.26 Lumbosacra l radiculitis 21793523 M54.17 Greater tr ochanteric pain syndrome 7603312 M70.61 M70.62 Muscle pain 30760475 M79 .1 [id number] Nilesh Short MD PAIN OFFICE [address] [facility] [place] [address] 06/28/2016 08:56:30 06/29/2016 13:50:14 Greater trochanteric pain syndrome 4303373 M70.61 M70.62 Muscle pain 97925450 M79 .1 Displaceme nt of lumbar intervertebral disc without myelopathy 52094112 M51.26 Lumbosacra l radiculitis 25005275 M54.17 [id number] Nilesh Short MD PAIN OFFICE [address] [place] [address] 11/03/2016 08:54:59 11/03/2016 11:34:05 Greater trochanteric pain syndrome 7184398 M70.61 M70.62 Muscle pain 36525379 M79 .1 Displaceme nt of lumbar intervertebral disc without myelopathy 66890634 M51.26 Lumbosacra l radiculitis 60669342 M54.17 Neuropathy due to diabetes mellitus 973702959 E11.40 [id number] Nilesh Short MD PAIN OFFICE [address] [place] [address] 11/28/2016 15:21:14 12/02/2016 12:20:25 Greater trochanteric pain syndrome 4505340 M70.61 M70.62 Muscle pain 66801593 M79 .1 Displaceme nt of lumbar intervertebral disc without myelopathy 73251427 M51.26 Lumbosacra l radiculitis 95390792 M54.17 [id number] Nilesh Short MD PAIN OFFICE [address] [place] [address] 03/13/2017 10:06:19 03/13/2017 15:12:37 Displacement of lumbar intervertebral disc without myelopathy 45312639 M51.26 Lumbosacra l radiculitis 50700807 M54.17 Greater tr ochanteric pain syndrome 0818519 M70.61 M70.62 Muscle pain 25869115 M79 .1 [id number] Nilesh Short MD PAIN OFFICE [address] [place] [address] 04/03/2017 14:02:46 04/05/2017 10:54:20 Greater trochanteric pain syndrome 4288485 M70.61 M70.62 Muscle pain 54809632 M79 .1 Displaceme nt of lumbar intervertebral disc without myelopathy 20349333 M51.26 Lumbosacra l radiculitis 92476800 M54.17 [id number] Nilesh Short MD PAIN OFFICE [address] [facility] [place] [address] 05/15/2017 14:00:52 05/17/2017 08:36:19 Greater trochanteric pain syndrome 0615975 M70.61 M70.62 Muscle pain 41758409 M79 .1 Displaceme nt of lumbar intervertebral disc without myelopathy 91814189 M51.26 Lumbosacra l radiculitis 43317380 M54.17 [id number] Nilesh Short MD PAIN OFFICE [address] [facility] [place] [address] 07/17/2017 13:00:32 07/23/2017 09:07:16 Greater trochanteric pain syndrome 5293047 M70.61 M70.62 Muscle pain 28267559 M79 .1 Displaceme nt of lumbar intervertebral disc without myelopathy 16685375 M51.26 Lumbosacra l radiculitis 21789511 M54.17 [id number] Nilesh Short MD PAIN OFFICE [address] [facility] [place] [address] 08/08/2017 09:24:32 08/08/2017 13:35:56 Greater trochanteric pain syndrome 7990122 M70.61 M70.62 Muscle pain 60507764 M79 .1 Displaceme nt of lumbar intervertebral disc without myelopathy 53508422 M51.26 Lumbosacra l radiculitis 47087596 M54.17 Neuropathy due to diabetes mellitus 378312632 E11.40 [id number] Nilesh Short MD PAIN OFFICE [address] [facility] [place] [address] 10/23/2017 10:37:47 10/25/2017 11:06:22 Greater trochanteric pain syndrome 7903406 M70.61 M70.62 Muscle pain 26216135 M79 .1 Displaceme nt of lumbar intervertebral disc without myelopathy 48364712 M51.26 Lumbosacra l radiculitis 75698330 M54.17 [id number] Nilesh hSort MD PAIN OFFICE [address] [facility] [place] [address] 12/21/2017 09:32:31 12/21/2017 10:59:10 Greater trochanteric pain syndrome 4065455 M70.61 M70.62 Muscle pain 09859890 M79 .10 Displaceme nt of lumbar intervertebral disc without myelopathy 53024049 M51.26 Lumbosacra l radiculitis 03848919 M54.17 Neuropathy due to diabetes mellitus 989938599 E11.40 [id number] Nilesh Short MD PAIN OFFICE [address] [facility] [place] [address] 01/01/2018 10:44:50 01/01/2018 12:09:50 Greater trochanteric pain syndrome 6080642 M70.61 M70.62 Muscle pain 01624557 M79 .10 Displaceme nt of lumbar intervertebral disc without myelopathy 32660738 M51.26 Lumbosacra l radiculitis 38459504 M54.17 Neuropathy due to diabetes mellitus 226405677 E11.40 [id number] Nilesh Short MD PAIN OFFICE [address] [facility] [place] [address] 03/26/2018 09:37:07 03/28/2018 14:06:41 Greater trochanteric pain syndrome 1434296 M70.61 M70.62 Muscle pain 96916277 M79 .18 Displaceme nt of lumbar intervertebral disc without myelopathy 67226453 M51.26 Lumbosacra l radiculitis 95635479 M54.17 [id number] Nilesh Short MD PAIN OFFICE [address] [facility] [place] [address] 06/25/2018 09:52:43 06/27/2018 10:48:30 Greater trochanteric pain syndrome 2386888 M70.61 M70.62 Muscle pain 64358526 M79 .18 Displaceme nt of lumbar intervertebral disc without myelopathy 25553210 M51.26 Lumbosacra l radiculitis 18472044 M54.17 [id number] Nilesh Short MD PAIN OFFICE [address] [place] [address] 09/24/2018 10:27:39 09/24/2018 11:41:43 Greater trochanteric pain syndrome 8382583 M70.61 M70.62 Muscle pain 01417694 M79 .10 Displaceme nt of lumbar intervertebral disc without myelopathy 47069319 M51.26 Lumbosacra l radiculitis 87451316 M54.17 Neuropathy due to diabetes mellitus 554676438 E11.40 [id number] Nilesh Short MD PAIN OFFICE [address] [place] [address] 11/12/2018 10:34:28 11/13/2018 11:10:45 Greater trochanteric pain syndrome 9070360 M70.61 M70.62 Muscle pain 83196056 M79 .18 Displaceme nt of lumbar intervertebral disc without myelopathy 43211580 M51.26 Lumbosacra l radiculitis 92416228 M54.17 [id number] Nilesh Short MD PAIN OFFICE [address] [place] [address] 01/29/2019 10:02:49 01/31/2019 14:30:24 Greater trochanteric pain syndrome 9807874 M70.61 M70.62 Muscle pain 54524361 M79 .10 Displaceme nt of lumbar intervertebral disc without myelopathy 94603295 M51.26 Lumbosacra l radiculitis 30161906 M54.17 Neuropathy due to diabetes mellitus 355462446 E11.40 [id number] Nilesh Short MD PAIN OFFICE [address] [place] [address] 04/30/2019 09:53:34 04/30/2019 14:09:49 Greater trochanteric pain syndrome 1895082 M70.61 M70.62 Muscle pain 72684410 M79 .18 Displaceme nt of lumbar intervertebral disc without myelopathy 57297856 M51.26 Lumbosacra l radiculitis 12493506 M54.17 Neuropathy due to diabetes mellitus 371283801 E11.40 [id number] Nilesh Short MD PAIN OFFICE [address] [place] [address] 08/26/2019 14:26:24 08/27/2019 15:38:50 Greater trochanteric pain syndrome 4804235 M70.61 M70.62 Muscle pain 86681465 M79 .18 Displaceme nt of lumbar intervertebral disc without myelopathy 57001478 M51.26 Lumbosacra l radiculitis 10881632 M54.17 Neuropathy due to diabetes mellitus 531760592 E11.40 [id number] Nilesh Short MD [facility] PAIN OFFICE [address] [place] [address] 11/04/2019 11:20:03 11/05/2019 14:22:15 Greater trochanteric pain syndrome 3751289 M70.61 M70.62 Muscle pain 51954379 M79 .10 Displaceme nt of lumbar intervertebral disc without myelopathy 98126814 M51.26 Lumbosacra l radiculitis 66146617 M54.17 Neuropathy due to diabetes mellitus 935501033 E11.40 [id number] Nilesh Short MD PAIN OFFICE [address] [place] [address] 02/03/2020 13:46:46 02/03/2020 15:09:05 Greater trochanteric pain syndrome 0431464 M70.61 M70.62 Muscle pain 01775319 M79 .10 Displaceme nt of lumbar intervertebral disc without myelopathy 20887212 M51.26 Lumbosacra l radiculitis 03229039 M54.17 Neuropathy due to diabetes mellitus 371030627 E11.40 [id number] Nilesh Short MD [facility] PAIN OFFICE [address] [place] [address] 04/27/2020 11:13:19 04/28/2020 14:25:57 Greater trochanteric pain syndrome 0394981 M70.61 M70.62 Muscle pain 79067537 M79 .18 Displaceme nt of lumbar intervertebral disc without myelopathy 82089231 M51.26 Lumbosacra l radiculitis 31139445 M54.17 Neuropathy due to diabetes mellitus 576894421 E11.40 [id number] Nilesh Short MD [facility] PAIN [facility]ICE [address] [facility] [place] [address] 07/27/2020 10:04:07 07/27/2020 10:40:07 Greater trochanteric pain syndrome 9314387 M70.61 M70.62 Muscle pain 61298773 M79 .10 Displaceme nt of lumbar intervertebral disc without myelopathy 03220509 M51.26 Lumbosacra l radiculitis 72438211 M54.17 Neuropathy due to diabetes mellitus 153150626 E11.40 [id number] Nilesh Short MD [facility] PAIN OFFICE [address] [facility] [place] [address] 01/11/2021 14:47:59 01/11/2021 16:23:23 Greater trochanteric pain syndrome 2581180 M70.61 M70.62 Muscle pain 15015115 M79 .10 Displaceme nt of lumbar intervertebral disc without myelopathy 88167781 M51.26 Lumbosacra l radiculitis 15821525 M54.17 Neuropathy due to diabetes mellitus 885664469 E11.40 [id number] Nilesh Short MD [facility] PAIN OFFICE [address] [facility] [place] [address] 05/18/2021 10:23:25 05/18/2021 11:31:11 Greater trochanteric pain syndrome 7258841 M70.61 M70.62 Muscle pain 80298269 M79 .10 Displaceme nt of lumbar intervertebral disc without myelopathy 26008351 M51.26 Lumbosacra l radiculitis 71370142 M54.17 Neuropathy due to diabetes mellitus 709300543 E11.40 [id number] Nilesh Short MD [facility] PAIN OFFICE [address] [place] [address] 09/06/2021 10:26:57 09/06/2021 11:31:16 Greater trochanteric pain syndrome 6162843 M70.61 M70.62 Muscle pain 64051506 M79 .10 Displaceme nt of lumbar intervertebral disc without myelopathy 75409152 M51.26 Lumbosacra l radiculitis 92985697 M54.17 Neuropathy due to diabetes mellitus 273107812 E11.40 [id number] Nilesh Short MD [facility] PAIN OFFICE [address] [facility] [place] [address] 12/27/2021 10:56:36 12/27/2021 11:31:54 Greater trochanteric pain syndrome 9658220 M70.61 M70.62 Muscle pain 87297919 M79 .10 Displaceme nt of lumbar intervertebral disc without myelopathy 01224137 M51.26 Lumbosacra l radiculitis 98387263 M54.17 Neuropathy due to diabetes mellitus 150742177 E11.40 [id number] Nilesh Short MD [facility] PAIN OFFICE [address] [facility] [place] [address] 04/19/2022 10:52:53 04/20/2022 08:54:27 Greater trochanteric pain syndrome 2928712 M70.61 M70.62 Muscle pain 08966022 M79 .10 Displaceme nt of lumbar intervertebral disc without myelopathy 83846145 M51.26 Lumbosacra l radiculitis 94126213 M54.17 Neuropathy due to diabetes mellitus 121585371 E11.40 [id number] Nilesh Short MD [facility] PAIN OFFICE [address] [facility] [place] [address] 08/01/2022 11:07:35 08/01/2022 14:35:40 Displacement of lumbar intervertebral disc without myelopathy 11275381 M51.26 Lumbosacra l radiculitis 88539952 M54.17 Neuropathy due to diabetes mellitus 645358575 E11.40 [id number] Nilesh Short MD [facility] PAIN OFFICE [address] [facility] [place] [address] 10/31/2022 11:08:50 10/31/2022 14:29:08 Displacement of lumbar intervertebral disc without myelopathy 87071115 M51.26 Lumbosacra l radiculitis 14111821 M54.17 Neuropathy due to diabetes mellitus 673791528 E11.40 [id number] Nilesh Short MD [facility] PAIN [facility] [address] [facility] [place] [address] 01/24/2023 10:26:51 01/25/2023 13:10:39 Displacement of lumbar intervertebral disc without myelopathy 01633636 M51.26 Lumbosacra l radiculitis 96628630 M54.17 Neuropathy due to diabetes mellitus 491256239 E11.40 [id number] Nilesh Short MD PAIN OFFICE [address] [place] [address] 05/22/2023 09:12:56 05/22/2023 10:52:45 Displacement of lumbar intervertebral disc without myelopathy 95592458 M51.26 Lumbosacra l radiculitis 16023736 M54.17 Neuropathy due to diabetes mellitus 029212462 E11.40 [id number] Nilesh Short MD PAIN OFFICE [address] [place] [address] 09/26/2023 10:16:43 09/26/2023 16:05:21 Displacement of lumbar intervertebral disc without myelopathy 52407557 M51.26 Lumbosacra l radiculitis 75394622 M54.17 Neuropathy due to diabetes mellitus 800385135 E11.40 [id number] Nilesh Short MD PAIN OFFICE [address] [address] 01/08/2024 10:45:57 01/08/2024 16:20:16 Greater trochanteric pain syndrome 7673765 M70.61 [id number] Nilesh Short MD [facility] PAIN OFFICE [address] [place] [address] 01/29/2024 14:25:01 01/29/2024 16:16:41 Displacement of lumbar intervertebral disc without myelopathy 66256885 M51.26 Lumbosacra l radiculitis 88473911 M54.17 Neuropathy due to diabetes mellitus 665326565 E11.40 [id number] Nilesh Short MD [facility] PAIN [facility] [address] [place] [address] 05/14/2024 11:34:19 05/14/2024 16:21:36 Greater trochanteric pain syndrome 5073200 M70.61 [id number] Nilesh Short MD PAIN OFFICE [address] [facility] [address] [place] [address] 07/08/2024 13:25:15 07/08/2024 16:24:00 Displacement of lumbar intervertebral disc without myelopathy 24872166 M51.26 Lumbosacra l radiculitis 62402164 M54.17 Neuropathy due to diabetes mellitus 923001452 E11.40 Health Concerns Section Related Observation LastModified by Organization Detai ls LastModified Time None Recorded Concern Status LastModified by Organization Details LastModified Time None Recorded Advance Directives Directive None Recorded Payers Insurance Date Sequence Insurance Name Policy Number Policy Hayes Covered Member ID Hayes Member ID Guarantor Name 04/01/2024 1 [employer] [facility] IN[facility]ITY PL[facility] (INDEMNITY) [id number] Yohana Fierro [id number] Yohana Fierro 04/01/2024 1 Jajah - PHCS (PPO) [id number] Yohana Fierro [id number] Yohana Fierro 11/08/2024 1 [place] [employer] Yohana Fierro [id number] Yohana Fierro 11/08/2024 2 [employer] [facility] INDEMNITY PLAN (INDEMNITY) [id number] Yohana Fierro [id number] Yohana Fierro Notes Date Note Type Note Provider Name and Address Organization Details Recorded Time 09/26/2023 text/html She is here for a lumbar epidural steroid injection under fluoroscopic guidance. She has stopped Eliquis for 3 days for the procedure.She states she is having more leg pain than hip pain today. Nilesh Short MD [address] , [address], [place], [address], [facility] 09/27/2023 08:18:34 01/08/2024 text/html She is here for a right trochanteric bursal steroid injection under fluoroscopic guidance. She had a recent fall at work and has been having right hip pain since the fall. She had X-rays done which show no fracture Nilesh Short MD [address] , [address], [place], [address], [facility] 01/08/2024 16:38:32 01/29/2024 text/html She is here for a lumbar epidural steroid injection under fluoroscopic guidance. She has stopped Eliquis . She states she is no longer taking the medicationShe states she is having more leg pain than hip pain today. Nilesh Short MD [address] [facility] , [address], [place], [address], [facility] 01/30/2024 11:22:24 05/14/2024 text/html She is here for a right trochanteric bursal steroid injection under fluoroscopic guidance. She had a recent fall at work and has been having right hip pain since the fall. She had X-rays done which show no fracture Nilesh Short MD [address] [facility] , [address], [place], [address], [facility] 05/14/2024 16:59:31 07/08/2024 text/html She is here for a lumbar epidural steroid injection under fluoroscopic guidance. She has stopped Eliquis . She states she is no longer taking the medicationShe states she is having more leg pain than hip pain today. Nilesh Short MD [address] , [address], [place], [address], [facility] 07/08/2024 16:28:20 OBGyn Episode No OBEpisode recorded.
== END 2025-01-27 13:10 | disposition home or self-care (01) ==
LOC: HO.HSM 12:21
PROVIDERS: PCP Registered Nurse; Visit Provider Nurse Practitioner
DX: G31.09 Other frontotemporal neurocognitive disorder (principal); F02.80 Dementia in other diseases classified elsewhere, unspecified severity, without behavioral disturbance, psychotic disturbance, mood disturbance, and anxiety
CPT/HCPCS: 99214

== ENCOUNTER → 2025-01-27 12:20 | Outpatient (BNVA) | payer MEDICARE, OTHER, SELFPAY | PROVIDERS: PCP Registered Nurse; Visit Provider Nurse Practitioner | DX: G31.09 Other frontotemporal neurocognitive disorder (principal); F02.80 Dementia in other diseases classified elsewhere, unspecified severity, without behavioral disturbance, psychotic disturbance, mood disturbance, and anxiety | CPT/HCPCS: 99212 ==

== ENCOUNTER 2025-03-10 12:13 | Outpatient (AMB) | payer MEDICARE, OTHER, SELFPAY ==
--- NOTE | 2025-03-10 12:46 | MHC.OFFVIS ---
Vital Signs 03/16/25 12:41 Blood Pressure Location Rt brachial Position Sitting Pulse 90 Pulse Source Palpation Intake Visit Reasons: 1 month f/u Allergies No Known Allergies Allergy (Verified 11/24/24 12:30) HPI Comments Details: Yohana is a 69-year-old female patient with a past medical history of diabetes and hypertension was evaluated as a new patient on 11/27/2024 for a memory evaluation. She is here today for a follow up visit. At the time of her last visit, she has been recently in the emergency room and seen by Psychiatry for behavioral disturbances and at time started on risperidone 1 mg twice daily. It was presumed at that time because she had an elevated amyloid doses interpretation she had Alzheimer's dementia in conjunction with a frontotemporal dementia. She had been seen by neuropsych and given this diagnosis. At the time of her initial visit, she was extremely hostile toward her niece who accompanied her. She was having extreme delusions and paranoia. Her MOCA score at the time of her last visit was 23/30 consistent with MCI. I ordered PET scan for further evaluation of possible Alzheimer's dementia. She had her PET scan 01/07/2025 which was a negative study. At the time of her follow up visit on 01/27/2025, she again presents to the office with her niece who had explained Yohana's behaviors has been much manageable and she has been much less resistant in hostile toward family members. She has been at that time taking risperidone consistently 1 mg twice daily. Her niece had however noticed some decline in cognitive functioning since her last visit. She was however able to go to small family functions for short periods time before becoming overwhelmed. She was interacting much better with family members. Choosing face all meals a day though did report some nausea in relation to her diabetic medications which has been switched around. She was getting meals on wheels and was able to prepare a small breakfast for herself at home. Her niece was making her larger meals and bulk. At the time of our last visit, her risperidone 1 mg twice daily was continued and she was started on donepezil 5 mg daily. Today in follow up her niece reports that since starting on the donepezil, she has been experiencing worsening of cognitive functioning, loss of appetite, and worsening of her tremors. She also feels that her aunt has been becoming more apathetic and emotion list. She has not had any significant outbursts and moods has been somewhat more stable however in general, she seems to be declining since starting the donepezil. She has had an approximate 15 lb weight loss over the course of the last month due to poor appetite. She has however been working with her rn cardiovascular to has been trying to optimize her medications. [facility] Medical History (Updated 01/31/25 @ 07:26 by Grecia Clemente CNP) Diabetes mellitus Memory changes Review of Systems Const All systems reviewed & are unremarkable except as noted in HPI and below Neuro Reports confusion (Oriented x3 though confused about situation at times. Improved since last ) Psych Reports confusion (Oriented x3 though confused about situation at times. Improved since last ) Physical Exam Const General: alert, awake, Physically active and confusion (Oriented x3 though confused about situation at times. Improved since last ) Nutritional Appearance: overweight Orientation/consciousness: oriented to person, oriented to place, oriented to time and confusion (Oriented x3 though confused about situation at times. Improved since last ) Limitations: wheelchair Neuro General: oriented to person, oriented to place, oriented to time and confusion (Oriented x3 though confused about situation at times. Improved since last ) Cranial nerves: Yes CN's II-XII intact bilaterally Cognition (Neuro): abnormal cognition Gait exam (Neuro): Normal gait present Motor exam (neuro): Tremors during motor activity present bilateral upper extremity resting tremor (R>L), jaw Psych Appearance: well kempt Mental Status: other (AOx3 but confused to situation ) Speech and movement: Clear speech present Affect: Labile affect present (Can be irritable or hostile but improved since last visit ) Attitude: cooperative and Guarded attititude/behavior present Insight: Limited insight present (Psych) Judgement: Limited judgement present (Psych) Assessment & Plan Assessment & Plan (1) Frontotemporal dementia: Code(s): G31.09 - Other frontotemporal neurocognitive disorder; F02.80 - Dementia in other diseases classified elsewhere, unspecified severity, without behavioral disturbance, psychotic disturbance, mood disturbance, and anxiety Category: Medical Plan Yohana is a 69-year-old female patient with a past medical history of diabetes and hypertension was evaluated as a new patient on 11/27/2024 for a memory evaluation. She is here today for a follow up visit. Since the time of our last visit, Yohana has declined including cognitive decline, significant weight loss, and more pronounced tremor which is evident on exam today compared to last. I am concerned that her weight loss has a affected her risperidone dose which may be quite high for her current weight. Risperidone can cause parkinsonism which may explain her increased tremor. It may be also affecting cognition. The donepezil seemed to have a negative impact on her cognition though it is unclear if this was directly related. The donepezil however is known to cause weight loss and loss of appetite which may have impacted her. Either way we will stop it. For now, we will taper down slightly on her risperidone especially given her weight loss and new parkinsonism. -stop donepezil -taper down slowly on risperidone for a goal dose of 0.5 mg twice daily (tapering instructions provided to niece in writing) -follow up in 1 month or sooner if needed Coding Level of Care Code Est Pt Level 4 (21954) Diagnoses Frontotemporal dementia G31.09; F02.80
--- OUTSIDE RECORDS SUMMARY | 2025-03-10 13:23 | XMS_ITS | Clinical Summary ---
Author Organization [facility] Address [address] [place] [address] Phone Care Team Providers Care Transfer Station Attendant Name Role Phone Mariangel Reena Primary Care Provider [phone] Encounters Date Type Department Care Team Description 01/07/2025 3:08 PM EDT - 01/07/2025 11:59 PM EDT Hospital Encounter [facility] PET Scan [address] [place] [id number] Alzheimer disease ([facility] V24, [facility] V28) Discharge Disposition: Home or Self Care from Last 3 Months Social History Tobacco Use Types Packs/Day Years Used Date Smoking Tobacco: Never Assessed Comments Unknown Sex and Gender Information Value Date Recorded Sex Assigned at Not on file Legal Sex Female 6:39 AM EST Gender Identity Not on file Sexual Orientation Not on file Plan of Treatment Upcoming Encounters Date Type Department Care Team (Late st Contact Info) Description 03/17/2025 1:00 PM EST Appointment [facility] CT Scan [address] [place] [phone] Health Maintenance Due Date Last Done Comments [...] Additional history exists Influenza Vaccine (#1) 2024 , 12/14/2021, 12/16/2020, Additional history exists Diabetes: Annual [...] Routine 01/07/2025 5:30 PM EDT Alzheimer disease ([facility] V24, [facility] V28) from Last 3 Months Results [...] Signed Date: 01/20/2025 12:08 ET Workstation ID: [id number] Transcribed By: Self Edit Transcribed Date: 01/16/2025 [...] Signed Date: 01/20/2025 12:08 ET Workstation ID: [id number] Transcribed By: Self Edit Transcribed Date: 01/16/2025 12:07 ET Reena August IM NM PROCEDURES Final Result from Last 3 Months Insurance MEDICARE [facility] Care Teams Transfer Station Attendant Relationship Specialty Start Date End Date Reena August [address] [place] [address] PCP - General Family Medicine 02/10/25
--- OUTSIDE RECORDS SUMMARY | 2025-03-10 13:24 | XMS_ITS | Data Portability ---
Author Organization [facility], PAIN OFFICE Address [address] [facility],[address] [place] [address] Care Team Providers Care Electromechanical Assembly Technician Name Role Phone PROMISE CORCORAN Primary Care Provider Assessment Encounter Date Assessment Date Assessment LastModified [...] By Organization Details Last Modified Time 01/08/2024 [id number] She was advised against bed rest lasting longer than four days and to continue activities as tolerated. [email or web address] Not available 01/08/2024 11:17:53 05/14/2024 [id number] She was advised against bed rest lasting longer than four days and to continue activities as tolerated. [email or web address] Not available 05/14/2024 13:06:16 Reason for Referral None Reported. Problems Name Problem SNOMED Code Status Onset Date Resolution Date Notes Provider Name and Address Organization Details Recorded Time Greater trochanteric pain syndrome 2254008 Active left is greater than right Nilesh good MD [address] , [address], [facility] [place], [address], [place] [facility] 6 09:49:12 Lumbosacral radiculitis 37673715 Active Nilesh good MD [address] , [address], [place], [address], [place] [facility] 6 09:49:12 Displacement of lumbar intervertebr al disc without myelopathy 48925478 Active Nilesh good MD [address] , [address], [place], [address], [place] [facility] 6 09:49:12 Muscle pain 03871125 Active Nilesh good MD [address] , [address], [facility] [place], [address], [place] [facility] 6 09:49:12 Neuropathy due to diabetes mellitus 634635204 Active Nilesh good MD [address] , [address], [place], [address], [place] [facility] 8 10:11:16 Problem Notes None recorded. Procedures Surgical History Date Name Laterality Status Provider Name and Address Organization Details Recorded Time 07/09/19 25 Lumbar Epidural steroid injection under fluoroscopic guidance completed Nilesh Short MD [address] , [address], [place], [address], [place] [facility] 07/08/2024 14:50:53 05/14/19 25 Greater Trochanteric Bursa Steroid Injection completed Nilesh Short MD [address] , [address], [place], [address], [place] [facility] 05/14/2024 13:07:48 01/29/20 24 Lumbar Epidural steroid injection under fluoroscopic guidance completed Nilesh Short MD [address] , [address], [place], [address], [place] [facility] 01/29/2024 14:56:20 01/08/20 24 Greater Trochanteric Bursa Steroid Injection completed Nilesh Short MD [address] , [address], [place], [address], [place] [facility] 01/08/2024 11:19:44 09/26/19 24 Lumbar Epidural steroid injection under fluoroscopic guidance completed Nilesh Short MD [address] , [address], [place], [address], [place] [facility] 09/26/2023 10:59:16 05/22/19 24 Lumbar Epidural steroid injection under fluoroscopic guidance completed Nilesh Short MD [address] , [address], [place], [address], [place] [facility] 05/22/2023 10:02:07 01/25/20 23 Lumbar Epidural steroid injection under fluoroscopic guidance completed Nilesh Short MD [address] , [address], [place], [address], [place] [facility] 01/24/2023 11:06:05 11/01/19 23 Lumbar Epidural steroid injection under fluoroscopic guidance completed Nilesh Short MD [address] , [address], [place], [address], [place] [facility] 10/31/2022 14:26:34 08/02/19 23 Lumbar Epidural steroid injection under fluoroscopic guidance completed Nilesh Short MD [address] , [address], [place], [address], [place] [facility] 08/01/2022 14:32:20 04/19/19 23 Lumbar Epidural steroid injection under fluoroscopic guidance completed Nilesh Short MD [address] , [address], [place], [address], [place] [facility] 04/19/2022 11:31:56 12/28/19 22 Lumbar Epidural steroid injection under fluoroscopic guidance completed Nilesh Short MD [address] , [address], [place], [address], [place] [facility] 12/27/2021 11:29:09 09/07/19 22 Lumbar Epidural steroid injection under fluoroscopic guidance completed Nilesh Short MD [address] , [address], [place], [address], [place] [facility] 09/06/2021 10:58:28 05/19/19 22 Lumbar Epidural steroid injection under fluoroscopic guidance completed Nilesh Short MD [address] , [address], [place], [address], [place] [facility] 05/18/2021 11:28:34 01/12/20 21 Lumbar Epidural steroid injection under fluoroscopic guidance completed Nilesh Short MD [address] , [address], [place], [address], [place] [facility] 01/11/2021 16:21:04 07/28/19 21 Lumbar Epidural steroid injection under fluoroscopic guidance completed Nilesh Short MD [address] , [address], [place], [address], [place] [facility] 07/27/2020 10:43:42 04/27/19 21 Greater Trochanteric Bursa Steroid Injection completed Nilesh Short MD [address] , [address], [place], [address], [place] [facility] 04/28/2020 14:22:40 02/03/20 20 Lumbar Epidural steroid injection under fluoroscopic guidance completed Nilesh Short MD [address] , [address], [place], [address], [place] [facility] 02/03/2020 15:06:15 11/04/19 20 Lumbar Epidural steroid injection under fluoroscopic guidance completed Nilesh Short MD [address] , [address], [place], [address], [place] [facility] 11/05/2019 14:19:41 08/26/19 20 Greater Trochanteric Bursa Steroid Injection completed Nilesh Short MD [address] , [address], [place], [address], [place] [facility] 08/27/2019 15:29:40 04/30/19 20 Greater Trochanteric Bursa Steroid Injection completed Nilesh Short MD [address] , [address], [place], [address], [place] [facility] 04/30/2019 14:02:37 01/30/20 19 Lumbar Epidural steroid injection under fluoroscopic guidance completed Nilesh Short MD [address] , [address], [place], [address], [place] [facility] 01/29/2019 16:41:22 11/13/19 19 Greater Trochanteric Bursa Steroid Injection completed Nilesh Short MD [address] , [address], [place], [address], [place] [facility] 11/13/2018 11:09:25 09/25/19 19 Lumbar Epidural steroid injection under fluoroscopic guidance completed Nilesh Short MD [address] , [address], [place], [address], [place] [facility] 09/24/2018 11:04:25 06/26/19 19 Greater Trochanteric Bursa Steroid Injection completed Nilesh Short MD [address] , [address], [place], [address], [place] [facility] 06/27/2018 10:45:38 03/26/19 19 Greater Trochanteric Bursa Steroid Injection completed Nilesh Short MD [address] , [address], [place], [address], [place] [facility] 03/28/2018 13:13:22 01/02/20 18 Lumbar Epidural steroid injection under fluoroscopic guidance completed Nilesh Short MD [address] , [address], [place], [address], [place] [facility] 01/01/2018 12:07:09 10/24/19 18 Greater Trochanteric Bursa Steroid Injection completed Nilesh Short MD [address] , [address], [place], [address], [place] [facility] 10/25/2017 11:03:21 08/09/19 18 Lumbar Epidural steroid injection under fluoroscopic guidance completed Nilesh Short MD [address] , [address], [place], [address], [place] [facility] 08/08/2017 10:10:30 07/18/19 18 Greater Trochanteric Bursa Steroid Injection completed Nilesh Short MD [address] , [address], [place], [address], [place] [facility] 07/23/2017 08:57:39 05/15/19 18 Greater Trochanteric Bursa Steroid Injection completed Nilesh Short MD [address] , [address], [place], [address], [place] [facility] 05/17/2017 08:32:11 04/03/19 18 Lumbar Epidural steroid injection under fluoroscopic guidance completed Nilesh Short MD [address] , [address], [place], [address], [place] [facility] 04/05/2017 09:31:12 11/29/19 17 Lumbar Epidural steroid injection under fluoroscopic guidance completed Nilesh Short MD [address] , [address], [place], [address], [place] [facility] 12/02/2016 11:46:03 06/29/19 17 Greater Trochanteric Bursa Steroid Injection completed Nilesh Short MD [address] , [address], [place], [address], [place] [facility] 06/29/2016 11:31:30 11/03/19 16 Lumbar Epidural steroid injection under fluoroscopic guidance completed Nilesh Short MD [address] , [address], [place], [address], [place] [facility] 11/03/2015 20:54:42 08/25/19 16 Lumbar Epidural steroid injection under fluoroscopic guidance completed Nilesh Short MD [address] , [address], [place], [address], [place] [facility] 08/25/2015 13:13:25 08/18/19 16 Greater Trochanteric Bursa Steroid Injection completed Nilesh Short MD [address] , [address], [place], [address], [place] [facility] 08/18/2015 13:36:42 [...] Name and Address Organization Details Recorded Time 52392 Iodinated contrast media (substanc e) medicatio n Not available Not available Not available 08/06/2015 [address] witho ut [...] IM syringe VACCINAT ION ADMINIST ERED BY [facility] 03/13 completed Not Available Not Available Not [...] IM syringe TO BE ADMINIST ERED BY [facility] FOR IMMUNIZA TION 12/21 completed Not Available [...] Recorded Body height Heart rate Oxygen saturation Pain severity - 0-10 verbal numeric rating [Score] - Reported Systolic And Diastolic Provider Name and Address Organization Details Last Updated DateTime 05/14/2024 173.99 cm 89 /min 98 % 5 118/52 mm[Hg] [place] [facility] 11:45:26 Date Recorded Body height Heart rate Oxygen saturation Systolic And Diastolic Provider Name and Address Organization Details Last Updated DateTime 07/08/2024 173.99 cm 82 /min 99 % 124/56 mm[Hg] Lisa Carty [place] [facility] 07/08/2024 13:35:13 Date Recorded Body height Oxygen saturation Heart rate Pain severity - 0-10 verbal numeric rating [Score] - Reported Systolic And Diastolic Provider Name and Address Organization Details Last Updated DateTime 09/26/2023 173.99 cm 96 % 90 /min 1 116/52 mm[Hg] Nilesh good MD [address] , [address], [facility] [place], [address], [place] [facility] 10:32:41 Date Recorded Body height Heart rate Oxygen saturation Systolic And Diastolic Provider Name and Address Organization Details Last Updated DateTime 01/08/2024 173.99 cm 91 /min 97 % 133/61 mm[Hg] Lisa Carty [place] [facility] 01/08/2024 10:55:09 Date Recorded Body height Heart rate Oxygen saturation Systolic And Diastolic Provider Name and Address Organization Details Last Updated DateTime 01/29/2024 173.99 cm 86 /min 96 % 117/41 mm[Hg] Lisa Carty [place] [facility] 01/29/2024 14:28:45 Social History Question Answer Notes LastModified by [email or web address] Details LastModified Time Tobacco Smoking Status Former Smoker Quit x 30 years Not Available [facility] 01/02/2020 03:16:10 Which Illicit Or Recreational Drugs Have You Used? No [id number] Information not available 01/02/2020 Education Post Graduate Doctorate Information not available 08/06/2015 Live Alone Or With Others? Alone Information not available 08/06/2015 Marital Status [email or web address] Informatio n not available 08/06/2015 What Was The Date Of Your Most Recent Tobacco Screening? 09/24/2018 [id number] Information not available 01/02/2020 How Many Years Have You Smoked Tobacco? 10 [id number] Information not available 01/02/2020 Sex: Unknown Functional Status Question Answer Note LastModified by popchips Details LastModified Time What is your level of alcohol consumption? 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 Family History Relationship Description Onset Age of this Age Resolved Age Notes LastModified by Organization Details LastModified Time Mother Malignant neoplastic disease Kidney [email or web address] Not available 10/17 20:51:14 Father Malignant neoplastic disease Lung [email or web address] Not available 10/17 20:51:14 Medical History Condition Response Depression Y Migrane Y Diabetes Y Anxiety Disorder Y Arthritis Y Asthma Y High Cholesterol Y Pulmonary Embolism Y Hypertension Y Gynecological HistoryNo gynecological history recorded. Obstetrics [...] ICD10 Code Diagnosis IMO Codes Diagnosis Note [id number] Nilesh Short MD PAIN OFFICE [address] [place] [address] 08/06/2015 09:07:11 08/09/2015 09:57:38 Displacement of lumbar intervertebral disc without myelopathy 10579965 M51.26 Lumbosacra l radiculitis 47911644 M54.17 Greater tr ochanteric pain syndrome 6537294 M70.61 M70.62 Muscle pain 90591781 M79 .1 [id number] Nilesh Short MD PAIN OFFICE [address] [place] [address] 08/18/2015 10:49:01 08/18/2015 13:37:22 Greater trochanteric pain syndrome 5720454 M70.61 M70.62 Muscle pain 67506117 M79 .1 Displaceme nt of lumbar intervertebral disc without myelopathy 41618546 M51.26 Lumbosacra l radiculitis 94185594 M54.17 [id number] Nilesh Short MD PAIN OFFICE [address] [place] [address] 08/25/2015 11:28:15 08/25/2015 13:15:01 Greater trochanteric pain syndrome 9472668 M70.61 M70.62 Muscle pain 14622288 M79 .1 Displaceme nt of lumbar intervertebral disc without myelopathy 07783710 M51.26 Lumbosacra l radiculitis 73110425 M54.17 [id number] Nilesh Short MD PAIN OFFICE [address] [place] [address] 10/15/2015 08:51:49 10/23/2015 18:50:09 Greater trochanteric pain syndrome 4317045 M70.61 M70.62 Muscle pain 23592941 M79 .1 Displaceme nt of lumbar intervertebral disc without myelopathy 89911358 M51.26 Lumbosacra l radiculitis 71864648 M54.17 13537 Nilesh Short MD PAIN OFFICE [address] [place] [address] 11/03/2015 10:59:49 11/04/2015 09:49:50 Lumbosacral radiculitis 55643634 M54.17 Displaceme nt of lumbar intervertebral disc without myelopathy 21869132 M51.26 Greater tr ochanteric pain syndrome 9055066 M70.61 M70.62 Muscle pain 20310443 M79 .1 [id number] Nilesh Short MD PAIN OFFICE [address] [place] [address] 05/22/2016 08:34:09 05/22/2016 09:54:32 Displacement of lumbar intervertebral disc without myelopathy 96913697 M51.26 Lumbosacra l radiculitis 32607728 M54.17 Greater tr ochanteric pain syndrome 8065440 M70.61 M70.62 Muscle pain 53102996 M79 .1 [id number] Nilesh Short MD PAIN OFFICE [address] [place] [address] 06/28/2016 08:56:30 06/29/2016 13:50:14 Greater trochanteric pain syndrome 4271211 M70.61 M70.62 Muscle pain 34336865 M79 .1 Displaceme nt of lumbar intervertebral disc without myelopathy 31726125 M51.26 Lumbosacra l radiculitis 90431958 M54.17 [id number] Nilesh Short MD PAIN OFFICE [address] [place] [address] 11/03/2016 08:54:59 11/03/2016 11:34:05 Greater trochanteric pain syndrome 1475878 M70.61 M70.62 Muscle pain 81688123 M79 .1 Displaceme nt of lumbar intervertebral disc without myelopathy 05695260 M51.26 Lumbosacra l radiculitis 06734679 M54.17 Neuropathy due to diabetes mellitus 271515125 E11.40 [id number] Nilesh Short MD PAIN OFFICE [address] [place] [address] 11/28/2016 15:21:14 12/02/2016 12:20:25 Greater trochanteric pain syndrome 6148352 M70.61 M70.62 Muscle pain 76448110 M79 .1 Displaceme nt of lumbar intervertebral disc without myelopathy 50006395 M51.26 Lumbosacra l radiculitis 07923495 M54.17 [id number] Nilesh Short MD PAIN OFFICE [address] [place] [address] 03/13/2017 10:06:19 03/13/2017 15:12:37 Displacement of lumbar intervertebral disc without myelopathy 41169392 M51.26 Lumbosacra l radiculitis 64021853 M54.17 Greater tr ochanteric pain syndrome 5470751 M70.61 M70.62 Muscle pain 52678115 M79 .1 [id number] Nilesh Short MD PAIN OFFICE [address] [facility] [address] 04/03/2017 14:02:46 04/05/2017 10:54:20 Greater trochanteric pain syndrome 3993902 M70.61 M70.62 Muscle pain 17695607 M79 .1 Displaceme nt of lumbar intervertebral disc without myelopathy 74302342 M51.26 Lumbosacra l radiculitis 81869702 M54.17 02130 Nilesh Short MD PAIN OFFICE [address] [place] [address] 05/15/2017 14:00:52 05/17/2017 08:36:19 Greater trochanteric pain syndrome 6267377 M70.61 M70.62 Muscle pain 21339349 M79 .1 Displaceme nt of lumbar intervertebral disc without myelopathy 39423913 M51.26 Lumbosacra l radiculitis 22158760 M54.17 [id number] Nilesh Short MD PAIN OFFICE [address] [facility] [address] 07/17/2017 13:00:32 07/23/2017 09:07:16 Greater trochanteric pain syndrome 0534327 M70.61 M70.62 Muscle pain 26370842 M79 .1 Displaceme nt of lumbar intervertebral disc without myelopathy 24683180 M51.26 Lumbosacra l radiculitis 19154268 M54.17 [id number] Nilesh Short MD PAIN OFFICE [address] [facility] [address] 08/08/2017 09:24:32 08/08/2017 13:35:56 Greater trochanteric pain syndrome 6360094 M70.61 M70.62 Muscle pain 22640680 M79 .1 Displaceme nt of lumbar intervertebral disc without myelopathy 50358095 M51.26 Lumbosacra l radiculitis 68382477 M54.17 Neuropathy due to diabetes mellitus 161147018 E11.40 [id number] Nilesh Short MD PAIN OFFICE [address] [facility] [address] 10/23/2017 10:37:47 10/25/2017 11:06:22 Greater trochanteric pain syndrome 4535942 M70.61 M70.62 Muscle pain 16547463 M79 .1 Displaceme nt of lumbar intervertebral disc without myelopathy 81534527 M51.26 Lumbosacra l radiculitis 70668502 M54.17 [id number] Nilesh Short MD PAIN OFFICE [address] [facility] [address] 12/21/2017 09:32:31 12/21/2017 10:59:10 Greater trochanteric pain syndrome 2280654 M70.61 M70.62 Muscle pain 85818773 M79 .10 Displaceme nt of lumbar intervertebral disc without myelopathy 53873557 M51.26 Lumbosacra l radiculitis 81780314 M54.17 Neuropathy due to diabetes mellitus 357847727 E11.40 [id number] Nilesh Short MD PAIN OFFICE [address] [place] [address] 01/01/2018 10:44:50 01/01/2018 12:09:50 Greater trochanteric pain syndrome 3967990 M70.61 M70.62 Muscle pain 43631269 M79 .10 Displaceme nt of lumbar intervertebral disc without myelopathy 87636817 M51.26 Lumbosacra l radiculitis 74924204 M54.17 Neuropathy due to diabetes mellitus 457815591 E11.40 [id number] Nilesh Short MD PAIN OFFICE [address] [place] [address] 03/26/2018 09:37:07 03/28/2018 14:06:41 Greater trochanteric pain syndrome 2223396 M70.61 M70.62 Muscle pain 90486440 M79 .18 Displaceme nt of lumbar intervertebral disc without myelopathy 94571537 M51.26 Lumbosacra l radiculitis 96030227 M54.17 [id number] Nilesh Short MD PAIN OFFICE [address] [place] [address] 06/25/2018 09:52:43 06/27/2018 10:48:30 Greater trochanteric pain syndrome 5993914 M70.61 M70.62 Muscle pain 64172047 M79 .18 Displaceme nt of lumbar intervertebral disc without myelopathy 25332295 M51.26 Lumbosacra l radiculitis 07872277 M54.17 34768 Nilesh Short MD PAIN OFFICE [address] [place] [address] 09/24/2018 10:27:39 09/24/2018 11:41:43 Greater trochanteric pain syndrome 1466909 M70.61 M70.62 Muscle pain 28968031 M79 .10 Displaceme nt of lumbar intervertebral disc without myelopathy 04507472 M51.26 Lumbosacra l radiculitis 38120164 M54.17 Neuropathy due to diabetes mellitus 519931801 E11.40 [id number] Nilesh Short MD PAIN OFFICE [address] [place] [address] 11/12/2018 10:34:28 11/13/2018 11:10:45 Greater trochanteric pain syndrome 9227806 M70.61 M70.62 Muscle pain 79430116 M79 .18 Displaceme nt of lumbar intervertebral disc without myelopathy 04802349 M51.26 Lumbosacra l radiculitis 45371202 M54.17 22217 Nilesh Short MD PAIN OFFICE [address] [place] [address] 01/29/2019 10:02:49 01/31/2019 14:30:24 Greater trochanteric pain syndrome 8184421 M70.61 M70.62 Muscle pain 72941579 M79 .10 Displaceme nt of lumbar intervertebral disc without myelopathy 29409767 M51.26 Lumbosacra l radiculitis 84226621 M54.17 Neuropathy due to diabetes mellitus 200143549 E11.40 01974 Nilesh Short MD PAIN OFFICE [address] [place] [address] 04/30/2019 09:53:34 04/30/2019 14:09:49 Greater trochanteric pain syndrome 9383628 M70.61 M70.62 Muscle pain 66923493 M79 .18 Displaceme nt of lumbar intervertebral disc without myelopathy 58393784 M51.26 Lumbosacra l radiculitis 01362634 M54.17 Neuropathy due to diabetes mellitus 326226397 E11.40 03257 Nilesh Short MD PAIN OFFICE [address] [place] [address] 08/26/2019 14:26:24 08/27/2019 15:38:50 Greater trochanteric pain syndrome 7027597 M70.61 M70.62 Muscle pain 65370245 M79 .18 Displaceme nt of lumbar intervertebral disc without myelopathy 40509195 M51.26 Lumbosacra l radiculitis 61514704 M54.17 Neuropathy due to diabetes mellitus 990404488 E11.40 30809 Nilesh Short MD PAIN OFFICE [address] [place] [address] 11/04/2019 11:20:03 11/05/2019 14:22:15 Greater trochanteric pain syndrome 1598550 M70.61 M70.62 Muscle pain 61858264 M79 .10 Displaceme nt of lumbar intervertebral disc without myelopathy 38867225 M51.26 Lumbosacra l radiculitis 92222395 M54.17 Neuropathy due to diabetes mellitus 662309955 E11.40 49952 Nilesh Short MD PAIN OFFICE [address] [place] [address] 02/03/2020 13:46:46 02/03/2020 15:09:05 Greater trochanteric pain syndrome 3451858 M70.61 M70.62 Muscle pain 33411277 M79 .10 Displaceme nt of lumbar intervertebral disc without myelopathy 89016130 M51.26 Lumbosacra l radiculitis 84226428 M54.17 Neuropathy due to diabetes mellitus 924792195 E11.40 37560 Nilesh Short MD PAIN OFFICE [address] [place] [address] 04/27/2020 11:13:19 04/28/2020 14:25:57 Greater trochanteric pain syndrome 5918130 M70.61 M70.62 Muscle pain 73397884 M79 .18 Displaceme nt of lumbar intervertebral disc without myelopathy 18410164 M51.26 Lumbosacra l radiculitis 99757109 M54.17 Neuropathy due to diabetes mellitus 945916428 E11.40 75865 Nilesh Short MD PAIN OFFICE [address] [place] [address] 07/27/2020 10:04:07 07/27/2020 10:40:07 Greater trochanteric pain syndrome 6968869 M70.61 M70.62 Muscle pain 02221010 M79 .10 Displaceme nt of lumbar intervertebral disc without myelopathy 84968048 M51.26 Lumbosacra l radiculitis 62598341 M54.17 Neuropathy due to diabetes mellitus 670720505 E11.40 04006 Nilesh Short MD PAIN OFFICE [address] [place] [address] 01/11/2021 14:47:59 01/11/2021 16:23:23 Greater trochanteric pain syndrome 4354706 M70.61 M70.62 Muscle pain 15456667 M79 .10 Displaceme nt of lumbar intervertebral disc without myelopathy 72200081 M51.26 Lumbosacra l radiculitis 19325840 M54.17 Neuropathy due to diabetes mellitus 875769127 E11.40 [id number] Nilesh Short MD PAIN OFFICE [address] [place] [address] 05/18/2021 10:23:25 05/18/2021 11:31:11 Greater trochanteric pain syndrome 1284395 M70.61 M70.62 Muscle pain 33549163 M79 .10 Displaceme nt of lumbar intervertebral disc without myelopathy 87431700 M51.26 Lumbosacra l radiculitis 20945028 M54.17 Neuropathy due to diabetes mellitus 473005489 E11.40 [id number] Nilesh Short MD [facility] PAIN OFFICE [address] [address] 09/06/2021 10:26:57 09/06/2021 11:31:16 Greater trochanteric pain syndrome 9508788 M70.61 M70.62 Muscle pain 95051481 M79 .10 Displaceme nt of lumbar intervertebral disc without myelopathy 01093875 M51.26 Lumbosacra l radiculitis 41868939 M54.17 Neuropathy due to diabetes mellitus 377329726 E11.40 63584 Nilesh Short MD [facility] PAIN OFFICE [address] [place] [address] 12/27/2021 10:56:36 12/27/2021 11:31:54 Greater trochanteric pain syndrome 7473603 M70.61 M70.62 Muscle pain 25809215 M79 .10 Displaceme nt of lumbar intervertebral disc without myelopathy 96750650 M51.26 Lumbosacra l radiculitis 65457617 M54.17 Neuropathy due to diabetes mellitus 294446597 E11.40 47799 Nilesh Short MD PAIN OFFICE [address] [place] [address] 04/19/2022 10:52:53 04/20/2022 08:54:27 Greater trochanteric pain syndrome [id number] M70.61 M70.62 Muscle pain 12621606 M79 .10 Displaceme nt of lumbar intervertebral disc without myelopathy 14506212 M51.26 Lumbosacra l radiculitis 89148801 M54.17 Neuropathy due to diabetes mellitus 109509666 E11.40 [id number] Nilesh Short MD PAIN OFFICE [address] [place] [address] 08/01/2022 11:07:35 08/01/2022 14:35:40 Displacement of lumbar intervertebral disc without myelopathy [id number] M51.26 Lumbosacra l radiculitis 79149716 M54.17 Neuropathy due to diabetes mellitus 062680013 E11.40 [id number] Nilesh Short MD PAIN OFFICE [address] [place] [address] 10/31/2022 11:08:50 10/31/2022 14:29:08 Displacement of lumbar intervertebral disc without myelopathy 37570405 M51.26 Lumbosacra l radiculitis 24293608 M54.17 Neuropathy due to diabetes mellitus 307399219 E11.40 [id number] Nilesh Short MD PAIN OFFICE [address] [place] [address] 01/24/2023 10:26:51 01/25/2023 13:10:39 Displacement of lumbar intervertebral disc without myelopathy 35167299 M51.26 Lumbosacra l radiculitis 23582738 M54.17 Neuropathy due to diabetes mellitus 679834065 E11.40 [id number] Nilesh Short MD SV PAIN OFFICE [address] [facility] [place] [address] 05/22/2023 09:12:56 05/22/2023 10:52:45 Displacement of lumbar intervertebral disc without myelopathy 13975204 M51.26 Lumbosacra l radiculitis 10930846 M54.17 Neuropathy due to diabetes mellitus 425896492 E11.40 [id number] Nilesh Short MD SV PAIN OFFICE [address] [facility] [place] [address] 09/26/2023 10:16:43 09/26/2023 16:05:21 Displacement of lumbar intervertebral disc without myelopathy 84217146 M51.26 Lumbosacra l radiculitis 36228453 M54.17 Neuropathy due to diabetes mellitus 263507679 E11.40 [id number] Nilesh Short MD SV PAIN OFFICE [address] [facility] [place] [address] 01/08/2024 10:45:57 01/08/2024 16:20:16 Greater trochanteric pain syndrome 2712101 M70.61 [id number] Nilesh Short MD SV PAIN OFFICE [address] [facility] [place] [address] 01/29/2024 14:25:01 01/29/2024 16:16:41 Displacement of lumbar intervertebral disc without myelopathy 16194614 M51.26 Lumbosacra l radiculitis 42513821 M54.17 Neuropathy due to diabetes mellitus 130838410 E11.40 [id number] Nilesh Short MD SV PAIN OFFICE [address] [facility] [place] [address] 05/14/2024 11:34:19 05/14/2024 16:21:36 Greater trochanteric pain syndrome 0974225 M70.61 [id number] Nilesh Short MD SV PAIN OFFICE [address] [facility] [place] [address] 07/08/2024 13:25:15 07/08/2024 16:24:00 Displacement of lumbar intervertebral disc without myelopathy 63386368 M51.26 Lumbosacra l radiculitis 67704574 M54.17 Neuropathy due to diabetes mellitus 262907555 E11.40 Health Concerns Section Related Observation LastModified by Organization Detai ls LastModified Time None Recorded Concern Status LastModified by Organization Details LastModified Time None Recorded Advance Directives Directive None Recorded Payers Insurance Date Sequence Insurance Name Policy Number Policy Hayes Covered Member ID Hayes Member ID Guarantor Name 04/01/[address] [facility] INDEMNITY PLAN (INDEMNITY) [id number] Yohana Fierro [id number] Yohana Fierro 04/01/2024 1 [employer] - PHCS (PPO) [id number] Yohana Fierro [id number] Yohana Fierro 11/08/2024 1 MEDICARE [place]: [employer] Yohana Fierro [id number] Yohana Fierro 11/08/2024 2 [employer] - GI INDEMNITY PLAN (INDEMNITY) [id number] Yohana Fierro [id number] Yohana Fierro Notes Date Note Type Note Provider Name and Address Organization Details Recorded Time 09/26/2023 text/html She is here for a lumbar epidural steroid injection under fluoroscopic guidance. She has stopped Eliquis for 3 days for the procedure.She states she is having more leg pain than hip pain today. Nilesh Short MD [address] [facility] , [facility] [address], [place], [address], [facility] 09/27/2023 08:18:34 01/08/2024 text/html She is here for a right trochanteric bursal steroid injection under fluoroscopic guidance. She had a recent fall at work and has been having right hip pain since the fall. She had X-rays done which show no fracture Nilesh Short MD [address] [facility] [address], [place], [address], [facility] 01/08/2024 16:38:32 01/29/2024 text/html She is here for a lumbar epidural steroid injection under fluoroscopic guidance. She has stopped Eliquis . She states she is no longer taking the medicationShe states she is having more leg pain than hip pain today. Nilesh Short MD [address] [facility] , [address], [place], [address], [facility] 01/30/2024 11:22:24 05/14/2024 text/html She is here for a right trochanteric bursal steroid injection under fluoroscopic guidance. She had a recent fall at work and has been having right hip pain since the fall. She had X-rays done which show no fracture Nilesh Short MD [address] [facility] , [address], [place], [address], [facility] 05/14/2024 16:59:31 07/08/2024 text/html She is here for a lumbar epidural steroid injection under fluoroscopic guidance. She has stopped Eliquis . She states she is no longer taking the medicationShe states she is having more leg pain than hip pain today. Nilesh Short MD [address] [facility] , [address], [place], [address], [facility] 07/08/2024 16:28:20 OBGyn Episode No OBEpisode recorded.
[2025-03-16 12:41] VITALS: PULSE 90
== END 2025-03-10 13:06 | disposition home or self-care (01) ==
LOC: HO.HSM 12:13
PROVIDERS: PCP Registered Nurse; Visit Provider Nurse Practitioner
DX: G31.09 Other frontotemporal neurocognitive disorder (principal); F02.80 Dementia in other diseases classified elsewhere, unspecified severity, without behavioral disturbance, psychotic disturbance, mood disturbance, and anxiety
CPT/HCPCS: 99214

== ENCOUNTER → 2025-03-10 12:13 | Outpatient (BNVA) | payer MEDICARE, OTHER, SELFPAY | PROVIDERS: PCP Registered Nurse; Visit Provider Nurse Practitioner | DX: G31.09 Other frontotemporal neurocognitive disorder (principal); F02.80 Dementia in other diseases classified elsewhere, unspecified severity, without behavioral disturbance, psychotic disturbance, mood disturbance, and anxiety | CPT/HCPCS: 99212 ==